=== PATIENT | male | born 1935 | race Caucasian/White ===

== ENCOUNTER 2018-12-02 14:47 | Inpatient (IN) | payer OTHER ==
[~2018-12-02] VITALS: Ht 177.8 cm; Wt 75.3 kg
[2018-12-02] VITALS (11 sets, daily range): BP systolic 124–189; BP diastolic 60–92
[2018-12-02 15:18] LABS: URINE BILIRUBIN NEGATIVE (Negative); URINE BLOOD NEGATIVE (Negative); URINE CLARITY CLEAR; URINE COLOR YELLOW; URINE GLUCOSE-RANDOM* NEGATIVE (Negative); URINE KETONES NEGATIVE (Negative); URINE LEUKOCYTES-REFLEX NEGATIVE (Negative); URINE NITRITE-REFLEX NEGATIVE (Negative); URINE PROTEIN (DIPSTICK) NEGATIVE (Negative); URINE SPECIFIC GRAVITY 1.015 (1.005-1.035); URINE UROBILINOGEN 0.2 E.U./dl (0.2-1.0)
[2018-12-02 15:52] LABS: ABSOLUTE NEUTROPHILS 8.5 thou/uL (1.4-8.2); BASOPHILS 0.6 % (0.0-2.0); EOSINOPHILS 1.3 % (0.0-3.0); HEMATOCRIT 41.5 % (42.0-52.0); HEMOGLOBIN 13.9 gm/dL (14.0-18.0); LYMPHOCYTES 8.6 % (24.0-44.0); MCHC 33.4 g/dL (28.0-37.0); MCV 95.7 fL (80.0-100.0); MONOCYTES 8.8 % (1.0-8.0); PLATELET COUNT 295 thou/uL (150-400); POLYS 80.7 % (36.0-66.0); RBC 4.34 mil/uL (4.50-6.00); RDW 13.1 % (10.5-14.5); WBC 10.5 thou/uL (4.0-11.0)
[2018-12-02 15:57] LABS: ANION GAP 10 mmol/L (7-16); BUN 45 mg/dL (7-18); CALCIUM 9.7 mg/dL (8.5-10.1); CHLORIDE 106 mmol/L (98-107); CO2 25 mmol/L (21-32); CREATININE 1.4 mg/dL (0.7-1.3); GLUCOSE 106 mg/dL (74-106); POTASSIUM 4.8 mmol/L (3.5-5.1); SODIUM 141 mmol/L (136-145)
[2018-12-02 16:07] LABS: ALBUMIN 3.6 g/dL (3.4-5.0); MAGNESIUM 2.3 mg/dL (1.8-2.4); SGOT 46 U/L (15-37); SGPT 72 U/L (30-65); TOTAL BILIRUBIN 0.4 mg/dL (<0.1-1.0); TOTAL PROTEIN 7.7 g/dL (6.4-8.2); TROPONIN-I <0.06 ng/mL (<0.06)
[2018-12-03] VITALS (20 sets, daily range): BP systolic 112–153; BP diastolic 51–72
--- NOTE | 2018-12-03 07:08 | NUR ---
Pt admitted from ED, with at dtr in attendance. Some history was obtained from spouse, including difficulty placing catheter, and suggested a condom catheter instead, which is working well, pt is aware when he needs to void. Cardene started for HTN, currently at 2 mg/hr, see vitals for values. Per report, pt is ataxic, has right hip bruising and discomfort.
--- NOTE | 2018-12-03 15:10 | EKG ---
[address] [place] [address] ELECTROCARDIOGRAM REPORT Name: ARISTEO BROWNE Room #: 243-P ADM IN M.R.#: [id number] Admission: 12/02/18 Attend Phys: Nicole Cash MD Discharge: Date of : 34 Report #: [id number] THIS REPORT FOR: //name// [facility] ED Test Date: 2018-12-02 Test Time: 15:16:25 Pat Name: ARISTEO BROWNE Department: Room: [facility] Gender: [employer] Teacher: RACIEL : 1935 Requested By: Laron Rodriguez Order Number: [id number] MD: Kb Saini Measurements Intervals [place] Rate: 89 P: 269 OH: 226 QRS: -47 QRSD: 94 T: 55 QT: 350 QTc: 426 Interpretive Statements Sinus or ectopic atrial rhythm Prolonged OH interval Left anterior fascicular block No previous ECG available for comparison Electronically Signed On 12-03-2018 15:10:45 CDT by Kb Saini [email or web address] <ELECTRONICALLY SIGNED> By: Kb Saini MD 12/03/18 1510 15 15 Kb Saini MD /JOHANN
--- NOTE | 2018-12-03 17:22 | NUR ---
Case opened to follow for support and dc planning. 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 Oncology has visited with the pt, and dtr this am. is considering options. She reports that she is a retired RN and she has been caring for him at home. She is normally able to get him in and out of the house for appts and he uses a rwalker. She can avoid the 12 steps in the front by going in the back entrance. She ask for their dtr Jesika to be added as an alternate contact and indicates that she is listed on his dpoa as well. She denies any recent home health but is familiar from several years ago after a hip surgery. She feels she can take care of him at home but may be open to discussing hh referral. She is hoping they can do some treatment for this new dx. Support provided. Will ask for therapy evals and reassess for dc planning needs. Prognosis guarded. will follow.
--- NOTE | 2018-12-03 18:37 | NUR ---
ASSESSMENTS AND INTERVENTIONS DOCCUMENTED. PATIENT RESTING QUIETLY AT SHIFT CHANGE. Q2 HOUR NEURO ASSESSMENTS INTIATED. AT BEDSIDE ASKING ABOUT DIET. SPEECH THERAPY CONSULTED PER DR. PUCKETT. PATIENT ORDERED A REGULAR DIET. PATIENT WORKING WITH OT. PATIENT TOLDERATED IT WELL. PATIENT TRANSFERED TO CT FOR SCAN. PATIENT TOLERATED TRANSFER WELL. PATIENT BROUGHT BACK TO ROOM AND WORKED WITH PT. PATIENT WAS ABLE TO STAND BUT WAS UNSTEADY.FAMILY AT BEDSIDE. FAMILY EDUCATED AND REEDUCATED ABOUT PATIENTS PLAN OF CARE. FAMILY ASKING TO SPEAK WITH DR. DR DALLAS WAS UNABLE TO BE REACHED AND DR. PUCKETT WAS PAGED. DR. PUCKETT ROUNDED ON PATIENT AND EDUCATED FAMILY. FAMILY EXPRESSING UNDERSTANDING.DURING THE 1600 HOUR, PATIENT SHOWING INCREASED SIGNS OF CONFUSION. DR PUCKETT PAGED AND ORDER FOR ZYPREXA RECIEVED. PATIENT RESTING IN BED AT THIS TIME. THE PLAN OF CARE IS TO CONTINUE TO MONITOR PATIENT NEURO STATUS AND PLAN OF CARE
[2018-12-04] VITALS (23 sets, daily range): BP systolic 104–164; BP diastolic 46–77
--- NOTE | 2018-12-04 05:49 | NUR ---
Pt has rested for short periods of time through the night. The condom cath was changed again, it only lasted a few hours, and is currently off. The urinal is at the bedside, and he received pericare/linen chnages as needed. He remains somewhat confused, is quite pleasant and tries to follow commands, but he does have some word- searching, so receptive and expressive dysphagia is noted. Monitor reads SR/SA, with a prolonged [place], and R-R varies, his BP has been stable, cardene has been titrated down to 1.5 mg/hr. Lungs are diminished, O2 at 2 L, no cough, he tries to remove sat probe frequently. The bed is in the low/locked position, the call light is within reach and the siderails are up x 4. Will continue to monitor and advance with care plans.
--- NOTE | 2018-12-04 07:58 | HC ---
[facility] [place] [address] CONSULTATION Name: ARISTEO BROWNE Room #: 243-P ADM IN M.R.#: [id number] Admission: 12/02/18 Attend Phys: Nicole Cash MD Discharge: Date of : 34 Report #: [id number] THIS REPORT FOR: //name// CC: Ruben Mancilla MD [facility] physician/PCP TARUN Cash HISTORY OF PRESENT ILLNESS: The patient is a very pleasant 83-year-old gentleman who reportedly has a recent history of mental status change. He is examined in the ICU-243. Note that the CAT scan yesterday raised a question about a left cerebral mass. An MRI confirms and suggests malignancy, possibly GBM. The patient seems to be aware that he is having some trouble thinking. He talks about perhaps some numbness on his right face. He also seems to think his right-side arm maybe week, but it is difficult to tell. He denies any headache or pain. He does not think that he has any swallowing trouble or breathing trouble. He denies dysphagia or aspiration, but he may have had some cough, he says with drinking. He is not aware of any significant weight change, bowel changes, or urinary changes recently. He has been very weak recently and maybe had polyuria. PAST MEDICAL HISTORY: Notable for the prostate cancer. Family is not available to see if there is ____. It sounds like he has been on Lupron for a number of years with Dr. Ruben Mancilla, may be had an increased dose or decreased dose and frequency recently, but will get records from Dr. Mancilla. He reports being on no medicines. We will need to clarify that. SOCIAL HISTORY: It sounds like he is retired, sounds like he used to work for the [employer]. FAMILY HISTORY: It sounds like he has a daughter who tells me is healthy, has a at home, was not able to reach her. PHYSICAL EXAMINATION: GENERAL: The patient appears his stated age. He is in ICU bed, a little bit difficulty answering questions. He is pleasant, little bit trouble finding his words. Face appears to be mostly symmetrical. VITAL SIGNS: Height is 5 feet 10 inches, 177.8 cm. Weight is 163 pounds or 74.2 kilograms. Blood pressure 137/67, O2 sat 95%, pulse 90, respirations 60, temperature 97.8. 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 It is hard to tell he may have some slight numbness on his right face, but it is hard to tell as far as how reliable historian he is. ABDOMEN: Soft, without masses. LUNGS: Clear worley with good respirations. HEART: Appears regular rate. EXTREMITIES: Without clubbing or cyanosis. I can tell, he seems to be [facility] [address] [place] [address] CONSULTATION Name: ARISTEO BROWNE Room #: 243-P ADM IN M.R.#: [id number] Admission: 12/02/18 Attend Phys: Nicole Cash MD Discharge: Date of : 34 Report #: [id number] generalized weak without weakness without focal LABORATORY DATA: Shows a creatinine of 1.4, albumin of 3.6, but that was before fluids. ALT was 72. White count 10.5, hemoglobin 13.9, and platelets 295. Coags normal. As mentioned above on imaging, we had a chest x-ray without acute process. The CT head raised the question about the left cerebral hemispheric extensive white matter with apparent mass with central low density. 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 MEDICATIONS: As described by the chart, currently include dexamethasone 8 mg q. 8 h IV. He is on IV fluids. He is also not nicardipine drip, Zofran p.r.n., and morphine p.r.n. ASSESSMENT AND PLAN: 1. 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 Agree with concerns about cancer. We will check CT chest, abdomen and pelvis to make sure this is in a lung cancer metastatic to the brain, which might change our treatment plan. We will await neurosurgery's input. We have some difficult decisions to make whether we radiate this or resect it or go palliative care route. I am afraid this is a very limited prognosis almost no matter what we find. We will await others input. I did talk briefly with the daughter to try to make them aware of the seriousness of his current health issues. 2. Mentation change. No definite aspiration but we will ask Speech Path to see the patient. 3. History of prostate cancer with reported higher PSA. We will try to get records from Dr. Mancilla. We will follow with you. <ELECTRONICALLY SIGNED> By: Nasim Celestin MD 12/04/18 0758 11 Nasim Celestin MD /nt
[2018-12-04 11:02] LABS: HEMOGLOBIN 12.9 gm/dL (14.0-18.0); MCH 31.8 pg (26.0-34.0); MCV 96.3 fL (80.0-100.0); RBC 4.05 mil/uL (4.50-6.00); RDW 13.1 % (10.5-14.5); WBC 15.4 thou/uL (4.0-11.0)
[2018-12-04 11:16] LABS: ALBUMIN 2.8 g/dL (3.4-5.0); CALCIUM 9.2 mg/dL (8.5-10.1); POTASSIUM 4.2 mmol/L (3.5-5.1); TOTAL BILIRUBIN 0.1 mg/dL (<0.1-1.0); TOTAL PROTEIN 6.3 g/dL (6.4-8.2)
--- NOTE | 2018-12-04 19:21 | NUR ---
PATIENT ALERT AND ORIENTED TO SELF ONLY. SINUS RHYTHM ON WASHCOAT WIPER. ON ROOM AIR, TOLERATING REGULAR DIET WELL. UP TO THE CHAIR WITH X2 ASSISTANCE, GAIT BELT, AND WALKER. PATIENT STAYED IN CHAIR FOR 4 HOURS. NO COMPLAINTS OF PAIN. PLAN OF CARE DISCUSSED WITH PATIENT AND FAMILY. NO SIGNS OF ACUTE DISTRESS NOTED AT THIS TIME. WILL CONTINUE TO MONITOR.
[2018-12-05] VITALS (24 sets, daily range): BP systolic 119–163; BP diastolic 54–116
--- NOTE | 2018-12-05 00:44 | NUR ---
CARE PLANE UPDATED AND UPDATED TARGET DATES.
--- NOTE | 2018-12-05 16:57 | NUR ---
PATIENT ALERT AND ORIENTED TO SELF ONLY, INTERMITTENTLY DROWSY THROUGHOUT THE DAY DUE TO LACK OF SLEEP OVER NIGHT, NEW SLEEPING MEDICATION ORDERED. PATIENT ON 2L NASAL CANNULA. SINUS RHYTHM ON INSPECTOR SHEET METAL PARTS. NO COMPLAINTS OF PAIN. SPOKE WITH MEDICAL TEAM INCLUDING RYLEE PUCKETT, AND ENE ABOUT FUTURE PLANNING: LUNG BIOPSY AND POSSIBLE RADIATION TREATMENT. DAUGHTER AND AWARE AND VERBALIZED UNDERSTANDING. PLAN DISCUSSED WITH PATIENT ALSO. KOCH INSERTED PER MD ORDER, PATIENT TOLERATED WELL WITH NO ISSUES. NO SIGNS OF ACUTE DISTRESS NOTED AT THIS TIME. WILL CONTINUE TO MONITOR.
--- NOTE | 2018-12-05 18:26 | NUR ---
SPOKE WITH DR. LUQUE ABOUT POSSIBLE RADIATION TREATMENT ONCE DISCHARGED. DR. LUQUE WOULD LIKE TO SPEAK WITH CASE MANAGEMENT, CONSULT ENTERED. HE CAN BE REACHED AT .
[2018-12-06] VITALS (24 sets, daily range): BP systolic 122–179; BP diastolic 59–91
--- NOTE | 2018-12-06 06:00 | NUR ---
A VERY PLEASANT GENTLEMAN. SLEPT MOST OF NIGHT. PETERS PUPILS 1+ 1600 CC UO THIS SHIFT. SINUS RHYTHM. REMAINS NPO FOR LUNG BIOPSY. DR DALLAS SPOKE WITH PTS THIS AM. LUNGS DIMINISHED BILAT. BATHED. WILLL CONT TO MONITOR.
--- NOTE | 2018-12-06 14:21 | NUR ---
Spoke with and dtr regarding dc planning. they reports patient with plan for radiation tx at [facility]. They are interested in post acute are at facility that can provide transportation to/from tx. [facility] and [facility] provide [facility] to/from apts. [facility] is full as well. Call placed to [facility] whose transport van is broken. Call placed to [facility] to call.
--- NOTE | 2018-12-06 14:35 | NUR ---
PATIENT SEEN BY DR. LAWSON THIS DATE. PATIENT WILL BE RECEIVING RADIATION AND IS NOT APPROPRIATE FOR ACUTE REHAB. PLAN FOR PATIENT TO GO TO A GROUP HOME FACILITY. CONFIRMED CASE MANAGEMENT WAS AWARE OF PATIENT'S WISHES. THANK YOU FOR THIS REFERRAL.
--- NOTE | 2018-12-06 16:16 | NUR ---
FAXED REFERRAL TO [facility] SPOKE WITH ONEAL IN ADM SHE RECEIVED REFERRAL AND WILL REVIEW. DCP TO FOLLOW.
[2018-12-07] VITALS (21 sets, daily range): BP systolic 99–188; BP diastolic 52–95
[2018-12-07 11:11] LABS: ALBUMIN 2.9 g/dL (3.4-5.0); CALCIUM 8.7 mg/dL (8.5-10.1); CREATININE 0.8 mg/dL (0.7-1.3); MAGNESIUM 1.8 mg/dL (1.8-2.4); TOTAL BILIRUBIN 0.3 mg/dL (<0.1-1.0); TOTAL PROTEIN 6.2 g/dL (6.4-8.2)
[2018-12-07 11:12] LABS: POTASSIUM 4.8 mmol/L (3.5-5.1)
[2018-12-07 11:44] LABS: HEMATOCRIT 44.1 % (42.0-52.0); HEMOGLOBIN 14.4 gm/dL (14.0-18.0); MCH 31.3 pg (26.0-34.0); MCHC 32.7 g/dL (28.0-37.0); MCV 95.8 fL (80.0-100.0); PLATELET COUNT 301 thou/uL (150-400); RDW 13.5 % (10.5-14.5); WBC 15.7 thou/uL (4.0-11.0)
[2018-12-07 12:05] LABS: ABSOLUTE NEUTROPHILS 14.1 thou/uL (1.4-8.2); PLATELET ESTIMATE NORMAL
--- NOTE | 2018-12-07 17:10 | NUR ---
Patient progressing towards outcome goals as evident by. Up in the chair most of the day. Ambulated with PT around the desk in the hallway. Tylenol given for rt hip pain with relief. Family states that he is more like himself today. Reassurance given to patient and family
--- NOTE | 2018-12-07 17:16 | NUR ---
SPOKE WITH SHE IS INTERESTED IN . REFERAL FAXED THEY ARE REVIEWING AND INQUIRING INTO TRANSPORT. UPDATED . IF CAN ASSIST WITH TRANSPORT SHE WANTS TO TOUR,.
--- NOTE | 2018-12-07 19:39 | NUR ---
PATIENT SITTING UP MOST OF THE DAY WITH FAMILY AT BEDSIDE. PATIENT STATUS IMPROVED AND MOVED TO MED SURG TELE STATUS. VSS.
[2018-12-08] VITALS: BP 124/71
[2018-12-08 04:01] VITALS: BP 119/71
[2018-12-08 04:33] LABS: HEMATOCRIT 42.3 % (42.0-52.0); HEMOGLOBIN 13.9 gm/dL (14.0-18.0); MCH 31.5 pg (26.0-34.0); MCHC 32.9 g/dL (28.0-37.0); MCV 95.9 fL (80.0-100.0); PLATELET COUNT 274 thou/uL (150-400); RBC 4.41 mil/uL (4.50-6.00); WBC 14.7 thou/uL (4.0-11.0)
[2018-12-08 04:43] LABS: CALCIUM 8.9 mg/dL (8.5-10.1); CREATININE 1.1 mg/dL (0.7-1.3); PHOSPHORUS 3.5 mg/dL (2.5-4.9); POTASSIUM 4.7 mmol/L (3.5-5.1)
[2018-12-08 05:25] LABS: ABSOLUTE NEUTROPHILS 13.1 thou/uL (1.4-8.2)
[2018-12-08 05:26] LABS: PLATELET ESTIMATE NORMAL
--- NOTE | 2018-12-08 05:26 | NUR ---
PT AOX3 DURING THE NIGHT. SLEEPING DURING ROUNDS. DENIED PAIN. VSS. AFEBRILE. GREAT URINE OUTPUT. NO COMPLAINS CURRENTLY WILL CONTINUE TO MONITOR.
[2018-12-08 08:00] VITALS: BP 107/74
--- NOTE | 2018-12-08 11:20 | NUR ---
Nutrition: pt admitted with brain lesion, AMS, fell at home. Seen for LOS. Hx prostate CA. S/P lung biopsy for left lower lung mass. Needs whole brain radiation per physician. Plan placement. reports UBW 180# over a year ago, 7%, not significant in time frame. She attributes this to a medication he has been on for prostate CA. Appetite reported as excellent. 50-100% of meals is documented. reports they follow organic type diet for past 20 years and eat very healthy. She is ordering meals. Obtained food preferences. No complaints voiced. Low nutrition risk.
[2018-12-08 12:00] VITALS: BP 119/52
--- NOTE | 2018-12-08 13:50 | NUR ---
PATIENT PROGRESSING TOWARDS OUTCOME GOALS EVIDENT BY INCREASE IN STRENGTH AND STAMINA NOTED. ALERT AND ABLE TO SAY HE IS IN THE HOSPITAL, BUT DOES NOT KNOW THE NAME OF THE HOSPITAL. PAIN IN RIGHT HIP RELEIVED WITH TYLENOL. PATIENT AND UPDATED WITH POC AND REASSURANCE GIVEN.
--- NOTE | 2018-12-08 16:10 | NUR ---
PATIENT TRANSFERRED TO 3W ROOM 363 VIA W/C WITH BELONGINGS, ACCOMPANIED BY HIS . EDUCATED TO HOW TO GET TO HER 'S ROOM. REPORT AND HANDOFF TO EREN GRIMALDO.
--- NOTE | 2018-12-08 16:16 | NUR ---
FAXED REFERRAL TO [facility] SPOKE WITH DEBRA IN INTAKE SHE RECEIVED REFERRAL AND CAN ACCEPT PT AT DISCHARGE. NEED TO NOTIFY [facility] OF PT'S PCP TO FOLLOW PT AFTER DC. DP TO FOLLOW.
[2018-12-08 16:43] VITALS: BP 136/69
--- NOTE | 2018-12-08 17:29 | NUR ---
INITIALLY PLANNING SKILLED POST ACUTE CARE BUT PREFERS HOME WITH HH CARE. REFERALL TO [facility]ARE. NO PREFERENCE FOR HH. [facility] HAS HH, PALLATIVE AND HOSPICE IF NEEDED IN FUTURE CARE. PATIENT HAS NO PCP. ONCOLOGY CANNOT FOLLOW FOR HH CARE. GAVE INFO ON [facility]SC.
--- NOTE | 2018-12-08 18:18 | NUR ---
ASSUMED CARE OF PATIENT WHEN TRANSFERED FROM ICU AROUND 1600. PATIENT HAD STABLE VITALS ON ARRIVAL WITH NORMAL SINUS RHYTHM ON TELEMETRY. AWAITING HALINAT'S BIOSPY RESULTS.
[2018-12-08 19:23] VITALS: BP 161/77
[2018-12-09 03:50] VITALS: BP 144/74
--- NOTE | 2018-12-09 05:31 | NUR ---
PT MAKING SLOW PROGRESS TOWARDS GOALS. ORIENTED TO NAME, PLACE, SITUATION AND TIME OF DAY. POORLY ORIENTED TO DATE. PLEASANT AFFECT.
[2018-12-09 08:40] VITALS: BP 175/86
--- NOTE | 2018-12-09 11:04 | HC ---
[facility] [place] [address] CONSULTATION Name: ARISTEO BROWNE Room #: 363-P ADM IN M.R.#: [id number] Admission: 12/02/18 Attend Phys: Nicole Cash MD Discharge: Date of : 34 Report #: [id number] THIS REPORT FOR: //name// CC: [facility] physician/PCP Nicole Cash DATE OF SERVICE: 12/06/2018 HISTORY OF PRESENT ILLNESS: The patient is an 83-year-old white male admitted with mental status changes, problems with word finding. notes approximately 3 months ago, he had a muscle strain, when he saw a chiropractor. He nevertheless has been pretty active and the daughter notes he was mowing in the lawn a couple of weeks ago. He has had worsening function; however, since that time, needing more and more assistance utilizing the walker and it has been more and more difficult for the to assist him. Upon admission, CT of the brain showed a large left parietal occipital mass with left to right shift. He is noted to have acute renal insufficiency. Chest CT showed left lower lobe mass. He has been seen by Radiation Oncology, thought to most likely a metastatic lung CA involving the brain. He is to undergo a biopsy of the lung mass this morning. Plan is to offer palliative radiation if the pathology is positive also Oncology is following. The patient has been started on Decadron with some improvement neurologically. We are seeing him in rehabilitation medicine consultation. PAST MEDICAL HISTORY: Prostate CA. MEDICATIONS: Please see the full medication listing. HABITS: No history of tobacco or alcohol abuse. SOCIAL HISTORY: Lives in a house with , did not need to utilize steps and most recently, he was able to use a walker as far as the assisting him on to appointments. REVIEW OF SYSTEMS: He is hard of hearing. No current complaints of chest pain, shortness of breath or abdominal discomfort. PHYSICAL EXAMINATION: GENERAL: An 83-year-old white male in no obvious distress. VITAL SIGNS: Last recorded temperature 98.5, pulse 64, respirations 13, and blood pressure 144/69. He is alert. HEAD, EYES, EARS, NOSE, AND THROAT: Appeared to be benign. NEUROLOGIC: Cranial nerves grossly intact. Facies are symmetric. EXTREMITIES: Functional range of motion of both upper and lower extremity strength is probably a grade 4/5. He was max assist with sit to stand transfers and is improved to mod assist. He took 2 steps mod assist front-wheeled walker, [facility] [address] [place] [address] CONSULTATION Name: ARISTEO BROWNE Room #: 363-P [facility] IN .R.#: [id number] Admission: 12/02/18 Attend Phys: Nicole Cash MD Discharge: Date of : 34 Report #: [id number] has some right lower extremity ataxia. ASSESSMENT: An 83-year-old white male with the following problem list: 1. Large left parietal occipital mass with left to right shift with some improvement with steroids. 2. Left lower lobe mass, most likely metastatic lung CA, involving brain per Radiation Oncology. 3. Prior history of prostate cancer. 4. Acute kidney injury, improving. Plan is moving a little better on the steroids. He is to undergo biopsy of the pulmonary mass this morning. PLAN: Therapies are to continue to work with him during this time period. The family has met with the social and political studies professor and they are looking at options including [facility], stay consideration such as at [facility] which is close to at least some at the site for Radiation Oncology. In the meantime, we will be glad to follow along and have the therapist continue to work with him during his [facility] stay. <ELECTRONICALLY SIGNED> By: Ruben Peñaloza MD 12/09/18 1104 1115 1310 Ruben Peñaloza MD /PMT
[2018-12-09] MEDS ORDERED: HYDROCODON-ACE1 EAC7 PO (12:31)
[2018-12-09] MEDS ORDERED: PEPCID20 MG PO (12:31)
[2018-12-09] MEDS ORDERED: NIFEDIPINE10 MG PO (12:31)
[2018-12-09] MEDS ORDERED: HYDROCHLOROTHIA25 M1 PO (12:31)
[2018-12-09] MEDS ORDERED: FLOMAX0.4 MG PO (12:31)
--- NOTE | 2018-12-09 13:21 | NUR ---
DISCHARGE SUMMARY: SW reviewed chart and spoke with nursing and attending physician. Pt was transferred to 3 from ICU and is medically stable for discharge home today. Orders written for HH. [facility] has accepted pt. Pt has radiation oncology appt scheduled for tomorrow, 12/[address] King. SW met with pt and at bedside to discuss discharge plan. SW provided appt info to pt's . Pt's to contact Yesica at Dr. King's office for additional info. Pt and spouse interested in establishing primary care with Dr. Veras. MEGAN scheduled appt with Dr. Veras's BUSINESS MGR, Peter Aquino for Thursday, 12/14 at 0915. Contact info for both appts placed in pt's discharge summary. Pt's declines HH at this time, stating that they will call for HH if they feel pt needs it. SW explained that a PCP will need to follow for HH. Pt's verbalized understanding. Pt's to provide transportation home. No additional SW needs identified at this time, but is available to assist should needs arise.
[2018-12-09 13:54] VITALS: BP 175/86
[2018-12-09 14:02] VITALS: BP 175/86
[2018-12-09 14:30] VITALS: BP 175/86
--- NOTE | 2018-12-09 15:43 | NUR ---
Reviewed discharge instructions with patient and his . Awaiting call back from Dr Carpenter regarding scripts for meds pt to take at home. Outpatient pharmacy attempting to contact Dr Carpenter. Pt's anxious to leave the hospital.
--- NOTE | 2018-12-09 15:48 | NUR ---
Pt has been up to the bathroom a few times. Encouraged to walk in [place] but has not wanted to walk. Pt reporting nausea and continued pain. Surgeon was contacted and order for Toradol received.
--- NOTE | 2018-12-09 16:00 | NUR ---
Discharged home. Assisted to outpatient pharmacy to cone picker medications by heating unit installer and then to car. driving patient home.
--- NOTE | 2018-12-20 13:08 | PATH ---
[facility] [address] [place] [address] PATHOLOGY RPT PROCEDURE Name: ARISTEO JEFFERSON Room #: 363-P DIS IN M.R.#: [id number] Admission: 12/02/18 Date of : 33 Discharge: 12/09/18 Report #: [id number] Path Case #: [id number] LCA Accession Number: [id number] . 01 Material submitted: . lung - LEFT LUNG BIOPSY. Modifiers: left . 01 Clinical history: . None provided . 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 . (IUV:dorian; 12/08/2018) QMS 12/08/2018 1443 Local . 02 Comment: Examination shows a poorly differentiated epithelial neoplasm within a fibrotic and elastotic stroma. A properly controlled p63 and TTF-1 are performed on block A1. The tumor shows strong nuclear reactivity with TTF-1 supporting the diagnosis rendered, the tumor is nonreactive to p63. . Dr. Myesha Thrasher has seen the bank representative H and E slide for this case and concurs with the diagnosis. Findings of this case are communicated to Dr. Bruno Celestin in the morning of 12/08/2018. (IUV:dorian; 12/08/2018) . 02 Addendum: . Special studies report received from [facility], [address] [place] [address], [address], [place], [address], on case [id number], labeled with their number [id number], dated 12/15/2018. . PD-L1 Immunohistochemistry Analysis . Body Site: Lung, left lower lobe (biopsy). Specimen Received: 1 paraffin block labeled "[id number]". . Clinical History Invasive moderate to poorly-differentiated adenocarcinoma, compatible with lung origin. . Results Table PD-L1 - PAU (R) Tumor Proportion Interpretation [id number] 80% High Expression . [address] [address] PATHOLOGY RPT PROCEDURE Name: ARISTEO JEFFERSON Room #: 363-P DIS IN M.R.#: [id number] Admission: 12/02/18 Date of : 34 Discharge: 12/09/18 Report #: [id number] Path Case #: [id number] . Reference Ranges PD-L1 protein expression is determined by using the Tumor Proportion Score (TPS), which is the percentage of at least 100 viable tumor cells showing complete or partial membrane staining at any intensity. . TPS less than 1%: No Expression . TPS greater than or equal to 1%: Expression - Eligible for KEYTRUDA (pembrolizumab) monotherapy. . TPS greater than or equal to 50%: High Expression - Eligible for KEYTRUDA (pembrolizumab) monotherapy. . Note: PD-L1 expression level TPS greater than or equal to 50% may be of interest but does not determine eligibility for KEYTRUDA monotherapy. . . at [employer]. Silvino Guerin M.D. . Tests PD-L1 IHC Analysis . Intended Use: PD-L1, 22C3 pharmDx is FDA approved for in vitro diagnostic use as a qualitative immunohistochemical assay using Monoclonal Mouse Anti-PD-L1, Clone 22-C3 intended for use in the detection of PD-L1 in formalin-fixed paraffin-embedded (FFPE) non-small cell lung cancer (NSCLC) using the [employer] EnVision FLEX visualization system on [employer] Link 48. PD-L1 22C3 pharmDx is indicated as an aid in identifying NSCLC patients for treatment with KEYTRUDA (pembrolizumab) monotherapy. See the KEYTRUDA product label for specific clinical circumstances guiding PD-L1 testing. PD-L1, 22C3 pharmDx is a trademark of [employer], an ANPI. . References: Marty TS, Segura Y-L, Tamy I, et al: Pembrolizumab versus chemotherapy for previously untreated, MF-K0-cdprwslmgn, locally advanced or metastatic mrq-bwyjt-vmbt lung cancer (KEYNOTE-042): a randomised, open-label, controlled, phase 3 trial. Lancet 2018June 10; Online(12) 1-12. . Rigo RS, Praveena P, Dior D-W, et al: Pembrolizumab versus docetaxel for previously treated, VS-H0-ohbgcnfl, advanced ugk-mmbbn-eimn lung cancer (KEYNOTE-010): a randomized controlled trial. Lancet 2015 Feb 24; Online(75) 2360-0. . Rl EB, Se NA, Sade R, et al: Pembrolizumab for the Treatment of [facility] [address] [place] [address] PATHOLOGY RPT PROCEDURE Name: ARISTEO JEFFERSON Room #: 363-P DIS IN M.R.#: [id number] Admission: 12/02/18 Date of : 34 Discharge: 12/09/18 Report #: [id number] Path Case #: [id number] Spn-Dpyfq-Iirn Lung Cancer. N Engl J Med 2015 July 27; 372:9264-2044. . Please contact [facility] for additional references. . Disclaimer This Test was performed by [facility] at [address] [place] [address], [facility]. [facility] is a business unit of [employer] a wholly-owned subsidiary of [employer]. . . Any image(s) that accompany this report is/are a bank representative image(s) only and should not be used to render a diagnosis. . This interpretation is contingent on the specimen and the clinical information received. . Known positive cells or tissues are employed with each test and examined to ensure positivity. Positive and negative internal controls, if present, react appropriately. . This analysis is an adjunct to the evaluation of the referring physician and does not represent a final diagnosis. . The immunohistochemistry tests performed at [employer]. were validated on tissue fixed in 10% neutral buffered formalin. The performance characteristics of the tests performed on tissue processed in other fixatives is not known. . This assay has not been validated on decalcified tissues. Results should be interpreted with caution if this specimen was decalcified given the likelihood of decreased staining or false negativity on decalcified specimens. . A complete copy of the report is on file. . Professional services performed by [employer] at [address] [facility] [address], [place] [address]. Technical services performed by [employer] at [facility] [address] [place] [address], [place] [address]. . (IUV:amj 12/15/2018) . . AZJ/12/15/2018 Addendum Electronically Signed by Kimberlee Franklin MD, Pathologist Addendum #2: [place] [address] PATHOLOGY RPT PROCEDURE Name: ARISTEO JEFFERSON Room #: 363-P DIS IN M.R.#: [id number] Admission: 12/02/18 Date of : 34 Discharge: 12/09/18 Report #: [id number] Path Case #: [id number] Special studies report received from [facility], [address] [place] [address], [place] [address], [place], [address], on case [id number], labeled with their number [id number], dated 12/16/2018. . EGFR Gene Mutation Analysis . INTERPRETATION: Negative for EGFR Mutation. . Indication for Study: Adenocarcinoma . Specimen Site and Type: Paraffin-Embedded Tissue-Lung, LLL . Nucleotide Change: . Amino Acid Change: . Comments: No mutations were detected within the analyzed region of the EGFR gene in the sample provided for analysis. Less than 5% of non-small cell lung carcinoma patients without identifiable mutations are reported to be responsive to EGFR tyrosine kinase inhibitor therapies. Results should be interpreted in conjunction with clinical and other laboratory findings for the most accurate interpretation. . A subgroup of non-small cell lung cancer (NSCLC) patients has shown clinical responsiveness to the epidermal growth factor receptor (EGFR) inhibitors gefitinib (IRESSA) and erlotinib (Tarceva), including never smokers, individuals of ethnicity, and those with adenocarcinoma histology. In the majority of patients with highly responsive tumors, the tumor contains a somatic mutation within the EGFR tyrosine kinase domain. The presence of a somatic EGFR mutation is significantly associated with response to gefitinib and erlotinib, and is strongly predictive of prolonged survival in NSCLC patients. . T790M mutation had been tested but was not detected in this submitted specimen. . This assay is able to detect 5% mutation in a background of wild-type DNA. . . See report [id number] for further information. See FISH report [id number] for further information. See report [id number] for further information. See report [id number] for further information. . . at [facility] [employer] [address] PATHOLOGY RPT PROCEDURE Name: ARISTEO JEFFERSON Room #: 363-P DIS IN M.R.#: [id number] Admission: 12/02/18 Date of : 34 Discharge: 12/09/18 Report #: [id number] Path Case #: [id number] Richard Chakraborty, Ph.D., ROSENDA DABMG, DABCC, DLMcm, M(ASCP)cm, MB(ASCP)cm . . Methodology: Genomic DNA was isolated from the provided tumor specimen. Exons 18 through 21 of the EGFR gene were subjected to SNaPShot multiplex PCR and primer extension for mutation detection. . Table: This Assay Can Detect the Following Mutations EGFR EGFR Codon Mutation Approximate % of all EGFR Exon Mutations 18 E709 E709K,E709Q 1% G719 G719S,G719C,G719A,G719D 2-5% 19 Insertions 18bp ins 1% Deletions 9,12,15,18,24 bp del 45% 20 Insertions 3,6,8,12 bp ins 5-10% S768 S768I 1-2% R776 R776C <1% T790 T790M 2% 21 L858 L858R 40% A859 A859T <1% L861 L861Q,L861R 2-5% * This Assay does not distinguish between the 18bp insertion and deletions at nucleotide position 2235 and 2237 . References: 1. Tye PA, Franchesca JA, Tobi BE. Epidermal Growth Factor Receptor Mutations in Ilj-Trwvu-Ebxe Lung Cancer: Implications for Treatment and Tumor Biology. J. Clin. Oncol. 2005; 23:8468-4276. 2. Celia TAM et al. A Platform for Rapid Detection of Multiple Oncogenic Mutations with Relevance to Targeted Therapy in Vvb-Obxcu-Fpnp Lung Cancer. J. Mol. Diagn. 2011;13(1):74-84. . Disclaimer This Test was performed by [facility] [employer] at [facility], [address]. [facility] is a business unit of [employer] a wholly-owned subsidiary of [employer]. . . Any image(s) that accompany this report is/are a bank representative image(s) only and should not be used to render a diagnosis. . This test was developed and its performance characteristics determined by [facility] It has not been cleared or approved by the Food and Drug Administration. [address] [address] PATHOLOGY RPT PROCEDURE Name: ARISTEO JEFFERSON Room #: 363-P DIS IN M.R.#: [id number] Admission: 12/02/18 Date of : 34 Discharge: 12/09/18 Report #: [id number] Path Case #: [id number] . A complete copy of the report is on file. . Professional services performed by [employer] at [address] [place] [address]. Technical services performed by [employer] at [address] [place], [place] [address]. . (IUV:amj 12/16/2018) . . . . . Special studies report received from [facility], [address] [place] [address], on case [id number], labeled with their number [id number], dated 12/16/2018. . BRAF Mutation Detection by PCR-SNAPSHOT Analysis . INTERPRETATION: Negative for a V600 BRAF mutation . Indication for Study: Adenocarcinoma . Specimen Type: Paraffin-Embedded Tissue-Lung, LLL . Comments: Somatic mutations in the BRAF oncogene are frequently found in human cancers, such as melanoma (approximately 40-60%), colorectal (approximately 5-15%), lung (approximately 1-3%), ovary (approximately 35%), thyroid carcinomas (approximately 45%) and hairy cell leukemia (approximately 100% in limited studies). Over 90% of the mutations are the V600E (1799T>A) mutation, but other V600 mutations have been reported. A negative result does not rule out the presence of other non-V600 mutations. Correlation with other clinical findings is needed for the most accurate interpretation. . This test detects multiple V600 mutations in BRAF, including V600E, V600K and other V600 variants. . See report [id number] for further information. See FISH report [id number] for further information. See report [id number] for further information. See Molecular report [id number] for further information. . Analytical Results: Assay Type Detection Parameters Result BRAF Gene Mutation Exon 15 V600 Negative [address] [address] PATHOLOGY RPT PROCEDURE Name: ARISTEO JEFFERSON Room #: 363-P DIS IN M.R.#: [id number] Admission: 12/02/18 Date of : 34 Discharge: 12/09/18 Report #: [id number] Path Case #: [id number] . at [facility] [employer] Richard Chakraborty, Ph.D., ROSENDA DABMG, DABCC, DLMcm, M([facility])cm, TEJ([facility])cm . Methodology: Genomic DNA was isolated from the provided specimen. Exon 15 of the BRAF gene was subjected to PCR and SNaPShot multiplex primer extension for mutation detection. This assay is able to detect 5% mutation in a background of wild-type DNA. . Intended Use: The detection of a BRAF V600 gene mutation aids in the specific diagnosis of certain cancers, such as hairy cell leukemia, and help to identify patients with worse prognosis and who may be responsive to certain therapies in a variety of cancers. . References: Kalie Sinclair al. (2014) Integrating molecular biomarkers into current clinical management in melanoma. Methods Mol. Biol. . . Maldonado Abdalla et al. (2014) Resistance to anti-EGFR therapy in colorectal cancer: from heterogeneity to convergent evolution. Cancer Disco. 4:1-12. . NCCN Clinical Practice Guidelines in OncologyTM for Colon Cancer v.2 2015. . NCCN Clinical Practice Guidelines in OncologyTM for Hairy Cell Leukemia. v.4 2014. . NCCN Clinical Practice Guidelines in OncologyTM for Rectal Cancer v.2 2015. . NCCN Clinical Practice Guidelines in OncologyTM for Thyroid Carcinoma. v.2 2014. . NCCN Clinical Practice Guidelines in OncologyTM for Non-Small Cell Lung Cancer. v.1 2014. . Ruslan K. et al. (2012) Lung cancers with acquired resistance to EGFR inhibitors occasionally harbor BRAF gene mutations but lack mutations in KRAS, NRAS, or MEK1. Proc. Natl. Acad. Sci. USA. 109:Q9338-W0387. . Maldonado Koo et al. (2013) Clinicopathological relevance of BRAF mutations in human cancer. Pathology 45: 346-356. . Mary Ann Farias. and Gerson Santizo. (2010) BRAF mutation testing in colorectal cancer. Arch. Pathol. Lab. Med. [phone]. [address] [address] PATHOLOGY RPT PROCEDURE Name: ARISTEO JEFFERSON Room #: 363-P DIS IN M.R.#: [id number] Admission: 12/02/18 Date of : 34 Discharge: 12/09/18 Report #: [id number] Path Case #: [id number] . Disclaimer This Test was performed by [facility] [employer] at [address] [place] [address], [address], [address]. [facility] is a business unit of [employer] a wholly-owned subsidiary of [employer]. . . This test was developed and its performance characteristics determined by [facility] [employer] It has not been cleared or approved by the Food and Drug Administration. . A complete copy of the report is on file. . Professional services performed by [employer] at [address] [place] [address], [facility] [address], [place] [address]. Technical services performed by [employer] at [address] [place] [address], [place] [address], [place] [address]. . (IUV:amj 12/16/2018) . AZJ/12/16/2018 Addendum Electronically Signed by Kimberlee Franklin MD, Pathologist Addendum #3: Special studies report received from [facility], [address] [place] [address], [facility] [address], [place], [address], on case [id number], labeled with their number [id number], dated 12/17/2018. . Fluorescence in situ Hybridization (FISH) Report ALK Analysis . RESULT: No Evidence of ALK Gene Rearrangement detected by FISH nuc edita(ALKx3 approximately 6)(20/50) . Specimen Type: Tissue, Left Lung . Specimen Fixative Type: Not Provided . Indication for Study: Adenocarcinoma . INTERPRETATION: Fluorescence in situ hybridization (FISH) analysis was performed on paraffin embedded tissue using an ALK Break Apart DNA probe (FDA approved kit, [employer]) for the detection of rearrangements involving the ALK gene. . Fifty interphase nuclei were examined and no evidence of ALK specific gene [facility] [address] [place] [address] PATHOLOGY RPT PROCEDURE Name: ARISTEO JEFFERSON Room #: 363-P DIS IN M.R.#: [id number] Admission: 12/02/18 Date of : 34 Discharge: 12/09/18 Report #: [id number] Path Case #: [id number] rearrangement was detected. 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 . Genetic changes other than those assayed here cannot be ruled out on the basis of this testing. Correlation with clinical and pathological findings is suggested for a complete interpretation of the results. . See FISH report [id number] for further information. See report [id number] for further information. See report [id number] for further information. See Molecular report [id number] for further information. . Electronically Signed by Chicho Traore, PhD, [facility] on 12/17/2018 at [employer] Chicho Traore, PhD, [facility] Cytogenetics Director . Methodology: FISH was performed using ALK Break Apart FISH Probe Kit (FDA approved, [employer] A minimum of fifty invasive tumor cells were examined from areas that were delineated by a Pathologist from a corresponding H/E slide. A classification of each nucleus as positive or negative is recorded according to bolt maker's instruction. The results are calculated as a percentage of the total positive cells to total cell analyzed. The normal cutoff was established as 15% using NSCLC FFPE tissue specimen. A negative result is reported when a sample with <15% rearranged cells and a positive result is defined when a sample shown greater than or equal to 15% cells with ALK gene rearrangements. A result is considered uninformative when there are less than 50 invasive tumor cells for FISH analysis. . Intended Use: The ALK Break Apart FISH Probe procedure is a qualitative test to detect rearrangements involving the ALK gene via fluorescence in situ hybridization (FISH) in FFPE NSCLC tissue specimens to aid in identifying those patients eligible for treatment with XALKOR (crizotinib). It is intended for use only on 10% neutral buffered formalin fixed paraffin-embedded NSCLC tissue. The optimal fixation time for tissue is 6-48 hours. The test is for prescription use only. . Disclaimer [facility] is a business unit of [employer] a wholly-owned subsidiary of [employer]. . Professional Component performed by [address] [place] [address], [address] - Organ Pipe Finisher: Aleksandra Mathew M.D. [address] [address] PATHOLOGY RPT PROCEDURE Name: ARISTEO JEFFERSON Room #: 363-P DIS IN M.R.#: [id number] Admission: 12/02/18 Date of : 34 Discharge: 12/09/18 Report #: [id number] Path Case #: [id number] Technical Component performed at [address] [place] [address], [place], [address] . . This assay has not been validated on decalcified tissues. Results should be interpreted with caution if this specimen was decalcified given the likelihood of false negativity on decalcified specimens. . Any image(s) that accompany this report is/are a bank representative image(s) only and should not be used to render a diagnosis. A complete copy of the report is on file. . Professional services performed by [employer] at [facility] [place], [address] - [employer]: Aleksandra Mathew M.D. Technical services performed by [employer] at [address] [place] [address]. . (IUV:amj 12/20/2018) . . . . . Special studies report received from [facility], [address] [place] [address], [address], on case [id number], labeled with their number [id number], dated 12/17/2018. . Fluorescence in situ Hybridization (FISH) Report [employer] Analysis . RESULT: Negative for ROS1 gene rearrangement . Specimen Type: Tissue, Left Lung . Indication for Study: Adenocarcinoma . INTERPRETATION: Fluorescence in situ hybridization (FISH) analysis was performed on this patient's paraffin embedded tissue specimen using a dual color break apart DNA probes for ROS1. . One hundred interphase nuclei were examined and no evidence of a ROS1 gene specific rearrangement (split signal pattern) was detected. 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 . Genetic changes other than those assayed here cannot be ruled out on the [facility] [address] [place] [address] PATHOLOGY RPT PROCEDURE Name: ARISTEO JEFFERSON Room #: 363-P DIS IN M.R.#: [id number] Admission: 12/02/18 Date of : 34 Discharge: 12/09/18 Report #: [id number] Path Case #: [id number] basis of this testing. Correlation with clinical and other pathological findings is suggested for a complete interpretation of these results. . See report [id number] for further information. See report [id number] for further information. See report [id number] for further information. See Molecular report [id number] for further information. . The following [employer] FISH analysis was performed on this patient's specimen: . Probe Detection Parameters Result ISCN ROS1 (6q22) Detects a rearrangement Not Detected nuc edita(3'ROS1, of the ROS1 gene ROS1,5'ROS1)x3 approximately 6 (3'ROS1 con 5'ROS1x3 approximately 6) () . Electronically Signed by Chicho Traore, PhD, [facility] on 12/17/2018 at [employer] Chicho Traore, PhD, [facility] Cytogenetics Director . Methodology: The patient specimen is processed onto a glass slide. Fluorescent DNA probe(s) is(are) applied to the cells on the slide under conditions of denaturation followed by hybridization. Stringency washes are applied and the slide is subsequently counterstained. A minimum of 100 interphase nuclei are analyzed unless otherwise indicated above. . References: Candie Cherry, Naveen BORGES, Maribel MATUTE, et al. ROS1 rearrangements define a unique molecular class of lung cancers. J Clin Oncol, 2012;30:863-70. . Naveen BORGES, Maribel Parisi-BRISEIDA, Dean Y-J, et al. Crizotinib in ROS1-rearranged rdu-dnipr-obdc lung cancer. N Engl J Med, 2014;371:1963-71 . Disclaimer [facility] is a business unit of [employer] a wholly-owned subsidiary of [employer]. . Professional Component performed by [facility] [place], [address] - Organ Pipe Finisher: Aleksandra Mathew M.D. Technical Component performed at [address] [place] [address], [address], [address] . This assay has not been validated on decalcified tissues. Results should [facility] [address] [place] [address] PATHOLOGY RPT PROCEDURE Name: ARISTEO JEFFERSON Room #: 363-P DIS IN M.R.#: [id number] Admission: 12/02/18 Date of : 34 Discharge: 12/09/18 Report #: [id number] Path Case #: [id number] be interpreted with caution if this specimen was decalcified given the likelihood of false negativity on decalcified specimens. . Any image(s) that accompany this report is/are a bank representative image(s) only and should not be used to render a diagnosis. . This test was developed and its performance characteristics determined by [employer] It has not been cleared or approved by the Food and Drug Administration. . A complete copy of the report is on file. . Professional services performed by [employer] at [facility] [place], [address] - Organ Pipe Finisher: [employer]. Technical services performed by [employer] at [address] [place] [address], [facility] [address], [place] [address]. . (IUV:amj 12/20/2018) . AZJ/12/20/2018 Addendum Electronically Signed by Kimberlee Franklin MD, Pathologist . 02 Electronically signed: . Kimberlee Franklin MD, Pathologist NPI- [id number] . 01 Gross description: . Received in formalin labeled "Aristeo Jefferson, left lung BX," and additionally labeled on the requisition as "left lower lobe," are 4 distinct needle cores of abreu soft tissue ranging from 0.4-0.7 cm in length and measuring less than 0.1 cm in diameter. The specimen is submitted entirely in cassettes A1 through A3. (TSD; 12/06/2018) TOB/TOB 12/06/2018 1731 Local . 02 Pathologist provided ICD-10: C34.32 . 02 CPT . 920459, S27752, Q49151 Specimen Comment: A courtesy copy of this report has been sent to Specimen Comment: [phone], . Specimen Comment: Report sent to / DR BARDALES Performed at: [address], [place] [id number] MD Fuentes Gutiérrez MD Phone: [phone] Performed at: [address] [address] PATHOLOGY RPT PROCEDURE Name: ARISTEO JEFFERSON Room #: 363-P DIS IN M.R.#: [id number] Admission: 12/02/18 Date of : 34 Discharge: 12/09/18 Report #: [id number] Path Case #: [id number] [address], [place], [place] [id number] MD Kimberlee Franklin MD Phone: [phone]
== END 2018-12-09 16:01 | disposition home or self-care (01) | DRG 180 ==
LOC: ER 14:47 → EROBS 17:13 → ICU 17:13 → 3W 12-08 16:16
PROVIDERS: Emergency Medicine; Internal Medicine; ADMIT Internal Medicine
PROC: 0BBJ3ZX Excision of Left Lower Lung Lobe, Percutaneous Approach, Diagnostic (ICD-10-PCS; principal; 2018-12-06)
DX: C34.90 Malignant neoplasm of unspecified part of unspecified bronchus or lung (principal); G93.41 Metabolic encephalopathy; N17.9 Acute kidney failure, unspecified; B37.9 Candidiasis, unspecified; R91.8 Other nonspecific abnormal finding of lung field; I10 Essential (primary) hypertension; M16.11 Unilateral primary osteoarthritis, right hip; Z85.46 Personal history of malignant neoplasm of prostate; Z87.891 Personal history of nicotine dependence
CPT/HCPCS: 10078; 10879

== ENCOUNTER 2019-01-30 17:13 | Inpatient (IN) | payer OTHER ==
[~2019-01-30] VITALS: Ht 177.8 cm; Wt 72.6 kg
--- NOTE | ~2019-01-30 | HC ---
[facility] [address] [place] [address] CONSULTATION Name: ARISTEO BROWNE Room #: 458-P ADM IN M.R.#: [id number] Admission: 01/30/19 Attend Phys: Bronson Veras MD Discharge: Date of : 34 Report #: [id number] THIS REPORT FOR: //name// CC: Bronson Veras DATE OF SERVICE: 02/02/2019 HISTORY OF PRESENT ILLNESS: The patient is an 83-year-old white male with metastatic prostate CA, right hip pain and inability to walk. He has confirmed bone mets as per his most recent PET scan. He has had problems with decreasing mobility and pain management and has been brought in to [facility]. The plan is to have palliative radiation treatment to his pelvic areas through [facility] outpatient. He does have metastatic cancer with bone mets to the pelvis. The pain is overall better controlled and we are seeing him in rehabilitation medicine consultation. 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 MEDICATIONS: Please see the full medication listing. SOCIAL HISTORY: Lives at home with very supportive who is a former RN. He has been ambulating with a front-wheeled walker and has been going for outpatient physical therapy with the transporting. She will give him a little bit of assistance with sit to stand, but then he has been able to ambulate with the walker. Single story house. He can stay on one floor. Two steps in. They do have family here in the [place] area as well. ALLERGIES: No known drug allergies. REVIEW OF SYSTEMS: He is hard of hearing. Did not offer any current complaints of chest pain, shortness of breath, and abdominal discomfort. He is a little groggy with pain medications. PHYSICAL EXAMINATION: GENERAL: An 83-year-old white male, in no obvious distress, as noted above he is a little hard of hearing, but pleasant. VITAL SIGNS: Temperature 98.4, pulse 80, respirations 16, blood pressure 128/46. HEENT: Facies appeared symmetric. EXTREMITIES: Functional range of motion of the upper extremities. Strength is grade 3+ to 4-/5. Lower extremities: He has some venous stasis changes of his legs distally. No focal calf swelling. Tone appeared to be intact. I would grade his strength at a grade 3+/5. DTRs are 1. He is mod assist with bed mobility, sit to stand, has been min assist with gait up to 7 steps min assist front-wheeled walker. He does have decreased endurance. [facility] [address] [place] [address] CONSULTATION Name: ARISTEO BROWNE Room #: 458-P [facility] IN M.R.#: [id number] Admission: 01/30/19 Attend Phys: Bronson Veras MD Discharge: Date of : 34 Report #: [id number] ASSESSMENT: An 83-year-old white male with the following problem list: 1. Metastatic lung cancer and prostate cancer with confirmed bony metastases to his hips. 2. Prior brain metastases with radiation therapy. 3. Functional mobility and ADL deficits. 4. Pain management issues. PLAN: The patient is a candidate for an acute in-hospital inpatient rehabilitation stay. I had a long discussion with the and discussed pros and cons. She understands that there are risks as far as possible pathologic fracture with the confirmed pelvic metastases, but that in order to get him stronger and able to function to get him back home. There will be the need for rehabilitation therapies to try to achieve this. Goals to try to get him back home as soon as reasonably possible, so that he can then go for his outpatient radiation therapy for the hips and pelvis. She desires for an acute in-hospital inpatient rehabilitation stay for the increased medical management and the therapy program to get him back home. He is a candidate and I feel that he has the tolerance for an acute rehab program. We will plan on transfer to the rehab darling when medically cleared. By: 1128 [id number] Ruben Peñaloza MD /[facility]
[~2019-01-30 17:13] MED LIST: FLOMAX0.4 MG PO; HYDROCHLOROTHIA25 M1 PO; HYDROCODON-ACE1 EAC7 PO; NIFEDIPINE10 MG PO; PEPCID20 MG PO
[2019-01-30 17:14] VITALS: BP 114/59
[2019-01-30] MEDS ORDERED: LORCET 5-325 M1 EACH PO (17:38)
[2019-01-30] MEDS ORDERED: MORPHINE SULFAT15 M3 PO (17:39)
[2019-01-30] MEDS ORDERED: OXYCODONE HCL 55 MG PO (17:39)
[2019-01-30] MEDS ORDERED: MEMANTINE HCL5 MG PO (17:40)
[2019-01-30] MEDS ORDERED: NORCO 5-325 TA1 EAC1 PO (17:40)
[2019-01-30 19:00] LABS: HEMATOCRIT 33.9 % (42.0-52.0); HEMOGLOBIN 11.1 gm/dL (14.0-18.0); MCH 31.4 pg (26.0-34.0); MCHC 32.8 g/dL (28.0-37.0); MCV 95.7 fL (80.0-100.0); PLATELET COUNT 279 thou/uL (150-400); RBC 3.55 mil/uL (4.50-6.00); RDW 15.1 % (10.5-14.5); WBC 9.1 thou/uL (4.0-11.0)
[2019-01-30 19:30] LABS: ABSOLUTE NEUTROPHILS 6.6 thou/uL (1.4-8.2); ANISOCYTOSIS 1+; POLYCHROMASIA OCCASIONAL
[2019-01-30 20:14] LABS: URINE BILIRUBIN NEGATIVE (Negative); URINE BLOOD NEGATIVE (Negative); URINE CLARITY CLEAR; URINE COLOR YELLOW; URINE GLUCOSE-RANDOM* NEGATIVE (Negative); URINE KETONES NEGATIVE (Negative); URINE LEUKOCYTES-REFLEX NEGATIVE (Negative); URINE NITRITE-REFLEX NEGATIVE (Negative); URINE PROTEIN (DIPSTICK) NEGATIVE (Negative); URINE UROBILINOGEN 0.2 E.U./dl (0.2-1.0)
[2019-01-30 20:39] LABS: ANION GAP 8 mmol/L (7-16); BUN 47 mg/dL (7-18); CALCIUM 8.4 mg/dL (8.5-10.1); CHLORIDE 97 mmol/L (98-107); CO2 28 mmol/L (21-32); CREATININE 1.9 mg/dL (0.7-1.3); GLUCOSE 114 mg/dL (74-106); POTASSIUM 3.9 mmol/L (3.5-5.1); SODIUM 133 mmol/L (136-145)
[2019-01-30 20:45] LABS: ALBUMIN 2.8 g/dL (3.4-5.0); DIRECT BILIRUBIN < 0.1 mg/dL (<0.1-0.3); SGOT 30 U/L (15-37); SGPT 32 U/L (30-65); TOTAL BILIRUBIN 0.2 mg/dL (<0.1-1.0); TOTAL PROTEIN 6.4 g/dL (6.4-8.2)
[2019-01-30 21:31] VITALS: BP 144/71
[2019-01-30 22:07] VITALS: BP 94/48
[2019-01-30 22:25] VITALS: BP 149/74
--- NOTE | 2019-01-31 03:58 | NUR ---
PT WAS ADMITTED IN TO THE UNIT AT 2215 FROM THE ER WITH C/O OF UNCONTROLABLE HIP PAINS.PT IS BEING TREATED AT [facility] FOR PROSTATE CANCER METASTASIS TO THE BONES,LUNGS AND BRAIN.PT VERY DROWSY AND HISTORY AND INFORMATION ABOUT PT COLLECTED FROM .PT MGT WAS DONE AT THE ER.PT IS X2 ASSIST AND SHOULD BE TURN SLOWLY DUE TO THE PAIN.PT IS [place], WILL BRING HEARING AIDS THIS MORNING.PT IV ACCESS ON RAC SL.PT PUTS ON A BRIEF.PT IS ON O2 1L WITH NC.CONTINUE TO MONITOR
[2019-01-31 08:00] VITALS: BP 148/62
--- NOTE | 2019-01-31 13:25 | NUR ---
INITIAL ASSESSMENT: SW reviewed chart and spoke with nursing. Pt was admitted from home due to bilateral hip pain and inability to ambulate. Pt with hx of metastatic prostate cancer. Pt [facility]. MEGAN met with pt and at bedside. Introduced role of SW. Pt is alert/orientated x 4. Pt and spouse live at home together. Prior to admission, pt was independent with ADLs. No steps at home. Pt's needs can be met on the ground level. Pt has a cane and walker. Pt is currently doing outpatient therapy at [facility]. Pt has used [facility] in the past. No hx of post-acute placement. Pt's pain is trying to be controlled. Pt's states that once pt's pain is under control, he should be good to return home. 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 MEGAN is following to assist as needed with discharge planning.
[2019-01-31 15:00] VITALS: BP 02/49
[2019-01-31 19:08] VITALS: BP 117/51
--- NOTE | 2019-01-31 20:48 | NUR ---
PATIENT PAIN NOT MANAGED WELL THIS SHIFT. REPORTS NO PAIN WHILE AT REST. PATIENT REPORTS THAT HE ONLY HAS PAIN WHEN OUT OF BED. DIFFICULTY MANAGING FOR PATIENT TO BENEFIT FROM THERAPY OR MOVEMENT OUTSIDE OF HIS BED. PHYSICIAN NOTIFIED THIS SHIFT AND ORDERS RECEIVED FOR SCHEDULED MEDICATION. PATIENT AND ARE AGREEABLE AND PLEASED WITH DECISION TO HAVE PAIN MEDS SCHEDULED. PATIENT AT BEDSIDE THIS SHIFT. PATIENT USING URINAL, ABLE TO USE WHILE STANDING WITH MODERATE ASSIST, STANDBY ASSIST USED WHILE PATIENT IN BED. FALL PRECAUTIONS IN PLACE. PATIENT MAY BENEFIT FROM [facility] ON DISCHARGE.
--- NOTE | 2019-02-01 03:57 | NUR ---
Assumed pt care at 1900. A/OX3, VSS. C/o pain to right hip 08/16. notified for pain meds changes by day RN @ HS;orders implemented. Fall precautions implemented. Resting quietly with no distress noted,oxygen in place at 1L/NC. Will continue to monitor pt.
[2019-02-01 07:52] VITALS: BP 119/61
--- NOTE | 2019-02-01 13:25 | NUR ---
Received awake on bed. Due medications given as prescribed. A+O, LYTTON- with bilateral hearing aids on. With O2 at 1llpm via nasal cannula- for comfort. On regular diet- tolerating well; no nausea, no vomiting and no abdominal pain noted. With NS at 80cc/hr, infusing well at R AC. Assisted in ADLs. With at bedside. Complained of pain, due PRN pain meds given as prescribed.
[2019-02-01 14:51] VITALS: BP 104/53
[2019-02-01 19:55] VITALS: BP 150/67
--- NOTE | 2019-02-02 02:08 | NUR ---
ASSUMED CARE OF PT AT 1900HRS. PT IS ALERT BUT ONLY ORIENTED TO PERSON AND PLACE THIS SHIFT. FALL PRECAUTION IN PLACE. ASSESSMENTS CHARTED. PT COMPLAINED OF SOME PAIN AND WAS TREATED WITH PRN PAIN MEDS. PT WAS ABLE TO GET COMFORTABLE AND SLEEP PART OF THE SHIFT. PT TURNED Q2H. VSS AND NO S/S OF ACUTE DISTRESS. WILL CONTINUE TO MONITOR.
[2019-02-02 04:55] VITALS: BP 123/60
[2019-02-02 07:43] VITALS: BP 128/46
[2019-02-02] MEDS ORDERED: NAMENDA 5 MG TAB5 M1 PO (12:21)
[2019-02-02] MEDS ORDERED: OXYCONTIN20 M1 PO (12:21)
--- NOTE | 2019-02-02 14:17 | NUR ---
[facility] ASSESSED PT AND INDICATED THAT THEY ARE ABLE TO ACCEPT PT FOR ADMISSION THIS DAY. PT AND SPOUSE ARE AWARE AND AGREEABLE. PLAN IS FOR PT TO GO TO [facility] TO REHAB BACK TO HOME WITH SPOUSE AND THEN RESUME CANCER TREATMENTS. NO OTHER CM INTERVENTION INDICATED. CASE CLOSED.
--- NOTE | 2019-02-02 14:42 | NUR ---
Assumed pt care this am. vs stable pain managed with medication partial relief has been noted. 1l O2 vis NC for comfort care on going. IV kept on and patent for rehab to use if necessary upon their requests. No nausea or vomiting has been noted. Pt is a max assists and requires alot of time to transfer, though pt as able to work with PT and OT today. Pt is hard of hearing, is at the bedside. Pt has urinary urgency but tried to use the urinal. Pt has been dc to 5[facility] going to 506, report given to Deb pt transported via bed abnd belongings sent with the pt.
== END 2019-02-02 15:15 | DRG 542 ==
LOC: ER 17:13 → 4W 22:26 → EROBS 22:26 → 4W 22:27 → ENTRNSPT 02-02 14:55 → EDTRNSPTSTS 02-02 14:56 → 4W 02-02 15:15
PROVIDERS: Emergency Medicine; ADMIT Family Medicine
DX: C79.51 Secondary malignant neoplasm of bone (principal); E43 Unspecified severe protein-calorie malnutrition; C34.90 Malignant neoplasm of unspecified part of unspecified bronchus or lung; C61 Malignant neoplasm of prostate; Z87.891 Personal history of nicotine dependence; Z28.21 Immunization not carried out because of patient refusal; Z68.23 Body mass index [BMI] 23.0-23.9, adult; Z79.899 Other long term (current) drug therapy
CPT/HCPCS: 10047

== ENCOUNTER 2019-02-02 13:23 | Inpatient (IN) | payer OTHER ==
[~2019-02-02] VITALS: Ht 180.3 cm; Wt 75.3 kg
[~2019-02-02 13:23] MED LIST changes: +LORCET 5-325 M1 EACH PO; +MEMANTINE HCL5 MG PO; +MORPHINE SULFAT15 M3 PO; +NAMENDA 5 MG TAB5 M1 PO; +NORCO 5-325 TA1 EAC1 PO; +OXYCODONE HCL 55 MG PO; +OXYCONTIN20 M1 PO
--- NOTE | 2019-02-02 14:56 | NUR ---
chart review, cm visited with pt and jennifer at bedside. intro to dcp for acute rehab, team meetings and transition of care " thank you will we want is for his pain to be better so get his legs stronger so can go home and i can get him to this treatment radiation on his hips, he has the tattoos on his hips he was supposed to [facility]. on thursday by pain was bad, so we came here. he already completed radiation for brain, and on sq and iv med for bone and lung. live in house. no steps or stairs. he was independent before pain, used walker, just to weak right know with pain. pt pleasant, quiet, able to communication verbally. noted o2 per nc " not ever been on oxygen before"/pt and . noted pt would close eyes in middle of visit and then would open eyes again if asked him another question. transport here to move pt up to acute rehab, room 506 being moved in the bed. will cont following as needed for dc needs.
[2019-02-02 19:25] VITALS: BP 152/74
--- NOTE | 2019-02-02 19:44 | NUR ---
ASSUMED CARE OF PT AT 1530. REPORT GIVEN TO THIS NURSE FROM NURSE ON PREVIOUS UNIT. ASSISTED PT TO UNIT AND REMAINED AT BEDSIDE UNTIL AFTER DINNER. PT IS A&OX3-4 AND FORGETFUL. VITAL SIGNS ARE STABLE. PT REQUIRES 1L O2 TO MAINTATAIN SPO2 >90%. ADMISSION ASSESSMENT, EDUCAITON, FORMS, VITALS, WEIGHT COMPLETED. PT MEDICATIONS FAXED TO PHARMACY. FALL PRECATIONS IN PLACE AND NURSING WILL CONTINUE TO MONITOR.
--- NOTE | 2019-02-02 22:42 | NUR ---
PT ASSESSMENT COMPLETED AND VSS. MEDS GIVEN ORDERED AND WELL TOLERATED. FALL PRECAUTIONS IN PLACE. PT C/O PAIN. PAIN MEDICATION HELPFUL AT THIS TIME. REPOSITIONING FREQUENTLY USING PILLOWS FOR COMFORT. BLADDER SCAN WNL AT THIS TIME. INC OF LARGE AMOUNTS OF URINE. SLEEPING AT THIS TIME. WILL CONTINUE TO MONITOR FREQUENTLY.
[2019-02-03 05:20] LABS: HEMATOCRIT 31.2 % (42.0-52.0); HEMOGLOBIN 10.1 gm/dL (14.0-18.0); MCH 31.1 pg (26.0-34.0); MCHC 32.3 g/dL (28.0-37.0); MCV 96.1 fL (80.0-100.0); RBC 3.25 mil/uL (4.50-6.00); RDW 14.9 % (10.5-14.5); WBC 11.4 thou/uL (4.0-11.0)
[2019-02-03 05:31] LABS: CREATININE 1.2 mg/dL (0.7-1.3); POTASSIUM 4.2 mmol/L (3.5-5.1)
[2019-02-03 09:54] VITALS: BP 123/53
--- NOTE | 2019-02-03 15:00 | NUR ---
ASSUMED CARES AT 0700. PT VERY SLEEPY. ORIENTED TO PERSON AND PLACE ONLY. FORGETFUL. VITALS REMAIN STABLE. PT CONTINUES TO HAVE JAUNDICE. REDNESS NOTED AROUND COCCYX AREA, SITE CLEANED AND BARRIER CREAM APPLIED. PT REPOSITIONED Q2H. PT REMAINS INCONTINENT OF BOTH BOWEL AND BLADDER, CLEANED AND BEDDINGS CHANGED. REMAINS ON [place] OXYGEN VIA NC WITH SATS >92%. IV ON RIGHT AC REMAINS PATENT AND INTACT. PT UP WITH MAX ASSIST OF 2, GB AND W/C. Q1H VISUAL CHECK. CALL LIGHT WITHIN REACH. FALL PRECAUTIONS IN PLACE. NB: DR DE LA ROSA TALKED WITH PT'S REGARDING CODE STATUS, AND DAUGHTER WOULD LIKE PT TO REMAIN FULL CODE AND ALL MEASURES TO SAVE LIFE UTILISED.
[2019-02-03 20:25] VITALS: BP 133/62
--- NOTE | 2019-02-03 22:28 | NUR ---
PT ASSESSMENT DONE AND VSS. MEDS GIVEN AND WELL TOLERATED. FALL PRECAUTIONS IN PLACE. SLEEPING WELL. HOURLY ROUNDING. CALL LIGHT IN REACH. WILL CONTINUE TO MONITOR.
[2019-02-04 08:15] VITALS: BP 124/69
--- NOTE | 2019-02-04 08:57 | NUR ---
ASSUMED CARE AT 0700. PATIENT IS ALERT AND ORIENTED X4, BUT FORGETFUL. PATIENT IS VERY [place], AND THE TOOK HIS HEARING AIDS HOME. LUNGS ARE CLEAR AND DEMINISHED. ABD IS SOFT WITH BSX4. PATIENT IS INCONTINENT OF URINE AND STOOL. PATIENT IS TURN Q 2 HOURS. FALL AND SAFETY PROTOCOLS IN PLACE. C/O HIP PAIN. MEDICATED WITH SCED PO PAIN MEDS. PATIENT CONTINUES TO PROGRESS SLOWLY TOWARDS D/C GOALS. WILL CONTINUE TO MONITER.
--- NOTE | 2019-02-04 10:25 | NUR ---
Nutrition: Consult for "Ensure dietary needs are being met." Pt admitted with lung cancer with bone METS. Eating 75-100% of meals. +BM today. Wt: 160#. Albumin 2.8. Appears pt is eating meals well. Home vitamins just restarted. RD will order Ensure Enlive for added nutrition intake. Follow up Thursday02/07/19 for further po intake, wt, labs. Mild risk at this time.
[2019-02-04 19:12] VITALS: BP 130/64
--- NOTE | 2019-02-05 03:09 | NUR ---
ASSESSMENT: PT REMAIN ALERT AND ORIENT TIMES THREE, SLEEPY YET EASY TO AROUSE. VSS, AFEBRILE. OSAGE. ON 2 LITERS PER NC, SATS 97% TURNED EVERY TWO HOURS, DOES ATTEMPT TO ASSIST WITH TURNS. SLOW PROGRESS TOWARDS DC GOALS. WILL CONTINUE TO MONITOR.
[2019-02-05 09:36] VITALS: BP 128/70
--- NOTE | 2019-02-05 17:27 | NUR ---
ALERT AND ORIENTED X3 CONFUSED BUT REORIENTS EASILY VERY PLEASANT AND COOPERATIVE. WORKS WELL WITH THEAPIES. INCONTINENT OF URINE AND SMEARS OF BROWN STOOL. O2 AT 4 L. GOOD APPETITE FOR MEALS ATE ALL MEALS IN DINNING ROOM. REMAINED UP IN CHAIR ALL SHIFT.
[2019-02-05 20:15] VITALS: BP 148/70
--- NOTE | 2019-02-06 00:18 | NUR ---
PT ALERT AND ORIENTED X 2. 02 ON AT 4L PER NC CONT. INCONT OF URINE. PT TOOK HS MEDS IN APPLESAUCE WITHOUT DIFFICULTY. SCROTUM AND GROIN RED. BARRIER CREAM APPLIED AFTER INCONT. PT DENIES PAIN OR DISCOMFORT. DOES SEEM TO BE IN PAIN WITH MOVEMENT FOR CARES. SCHEDULED OXYCONTIN GIVEN ORDERED. TURNED Q2H. BED ALARM ON FOR SAFETY. PT APPEARS TO BE SLEEPING ON HOURLY ROUNDS.
[2019-02-06 08:52] VITALS: BP 146/79
--- NOTE | 2019-02-06 15:59 | NUR ---
ASSUMED CARE OF PT AT 0715. PT IS A&O TO SELF, TIME, PLACE. IS ON 3-4L OF O2/NC. REPORTS BI LAT LE PAIN THAT IS BEING MANAGED WITH SCHEDULDED PAIN MEDS. PT WAS OFFERED PRN PAIN MEDS BUT REFUSES. IS UP WITH MAX ASSIST 1-2, GB, WALKER, STAND PIVOT. FALL PRECAUTIONS & HOURLY ROUNDING MAINTAINED THIS SHIFT. PT'S IS VERY INVOLVED. HAS BEEN TO THE NURSES STATION APPROXIMATELY 6 TIMES BEFORE LUNCH. SHE REQUESTED A COPY OF MED LIST WITH EXACT TIMES MEDICATIONS WERE GIVEN FOR HS & DAY SHIFT MEDS. SHE ALSO SPOKE WITH THE WHO ROUNDED ON PT TODAY & REQUESTED FOR PT TO TAKE OWN HOME VITAMINS APPROX 6 BOTTLES. VITAMINS WERE LABELED & SENT TO IN PT PHARM WITH [employer]. PT SPOUSE HAS ASKED ABOUT THEM 3XS SINCE, WAS INFORMED THAT SHE WOULD BE MADE AWARE WHEN THE PT COULD TAKE THEM ONCE PROTOCOLS ARE IN PLACE. LABS & VITALS REVIEWED. PT IS UP IN THE RECLINER, RELAXING, CALL LIGHT WITHIN REACH. WILL CONTINUE TO MONITOR.
[2019-02-06 19:15] VITALS: BP 145/73
--- NOTE | 2019-02-07 00:12 | NUR ---
PT ALERT AND ORIENTED X 2. INCONT OF URINE. PT TOOK HS MEDS CRUSHED IN YOGURT WITHOUT DIFFICULTY. 02 ON AT 3L PER NC CONT. PT C/O PAIN IN HIS FEET. SCHEDULED OXYCONTIN GIVEN AT HS. PT APPEARS TO BE SLEEPING SINCE PAIN MED GIVEN. BED ALARM ON FOR SAFETY. TURNED Q2H.
[2019-02-07 08:40] VITALS: BP 114/54
--- NOTE | 2019-02-07 11:27 | NUR ---
ASSUMED CARE OF PT AT 0715. REPORTS SLEPT GOOD. PT IS A&O TO SELF, TIME, PLACE. SAT 80% ON RA THIS AM. ENCOURAGED PT DEEP BREATH AND CHECK O2 ON THUMBS SAT 95% ON RA. WILL CONTINUE TO MONITOR NEED FOR O2. C/O RIGHT HIP PAIN. OXYCOTIN AND HYDROCODONE SCHEDULE GIVEN ORDERED. RATES PAIN 6/10 AND DOWN TO 4/10. IS UP WITH MOD-MAX ASSIST 1X, GB, WALKER, STAND PIVOT. PT'S IS VERY INVOLVED AND WANTS TO KNOW WHAT MEDS PT TOOK SINCE LAST NIGHT. MAR PRINTED OUT PER HER REQUESTS. MEDICATIONS WERE GIVEN FOR HS & DAY SHIFT MEDS. PT UP WITH PT AT GYM. OT GIVEN PT SHOWER AT THIS MOMENT. OFFER TOILETING FREQUENTLY. OFFERED SUPPORTIVE CARE. ENCOURAGED PT DEEP BREATHING AND GO TO DINNING ROOM FOR MEALS. UP TO DINNING ROOM. ATE 90% BREAKFAST. FALL PRECAUTIONS & HOURLY ROUNDING MAINTAINED THIS SHIFT. CALL LIGHT WITHIN REACH. WILL CONTINUE TO MONITOR.
[2019-02-07 20:13] VITALS: BP 141/69
--- NOTE | 2019-02-07 23:30 | NUR ---
PT ASSESSMENT DONE AND VSS. MEDS GIVEN AND WELL TOLERATED. FALL PRECAUTIONS IN PLACE. SLEEPING WELL. HOURLY ROUNDING. CALL LIGHT IN REACH. WILL CONTINUE TO MONITOR.
--- NOTE | 2019-02-08 07:06 | HC ---
[facility] [place] [place] [address] CONSULTATION Name: ARISTEO BROWNE Room #: 506-1 ADM IN M.R.#: [id number] Admission: 02/02/19 Attend Phys: Ruben Peñaloza MD Discharge: Date of : 34 Report #: [id number] THIS REPORT FOR: //name// CC: Ruben Veras DATE OF SERVICE: 02/05/2019 NEURO BEHAVIORAL STATUS EXAM. ATTENDING PHYSICIAN: Ruben Peñaloza MD LOAD DISPATCHER: Bronson Martines, PhD CLINICAL PRESENTATION: The patient is an 83-year-old white male admitted to the rehabilitation unit for comprehensive inpatient rehabilitation program. He has a history of metastatic prostate CA, metastatic lung CA, right hip pain and inability to walk. The patient was diagnosed with bone metastases involving the pelvic area. He has had problems with decreased mobility and pain management prior to coming to the [facility]. His is a retired nurse and has been able to manage his care in their home. She is hoping that he can return home and is planning to take care of him following his hospitalization and rehabilitation. As indicated, his past medical history includes stage 4 non-cell lung carcinoma with prior brain metastasis with radiation and prostate CA. Pain management issues, functional mobility and activities of daily living deficits are also reported. A complete description of his medical condition and history can be found in his medical records. Neuropsychological consultation was requested to provide assistance in the assessment of cognitive and emotional status and to provide recommendations and services. He was living with his in their home prior to this recent deterioration in functioning. The resurgence of cancer and metastasis was identified in November of 2018. He has one child and five grandchildren. 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 He is a from the [employer]. The patient is a high school graduate. TECHNIQUES UTILIZED: Clinical interview, review of medical records, staff consultation and behavioral observation, mini mental status exam 2 standard versions, clock drawing, digits forward and digits backward and family interview ? . EXAMINATION FINDINGS: The patient was alert and cooperative with the assessment. He was unable to describe the reason for his hospitalization. He [facility] [address] [place] [address] CONSULTATION Name: ARISTEO BROWNE Room #: 506-1 ADM IN M.R.#: [id number] Admission: 02/02/19 Attend Phys: Ruben Peñaloza MD Discharge: Date of : 34 Report #: [id number] presents with decreased verbal fluency and reduced speed of processing. Reduced auditory comprehension is also suggested. He is hard of hearing. His has a tendency to interject during the assessment. She attempts to minimize the difficulty he is having with cognition and is likely having increased anxiety in regard to his wellbeing and deterioration in functioning. Symptoms reported include anxiety, difficulty with memory and word finding. He does not report difficulty with sleep, appetite or depression. However, the patient intermittently was anxious during the assessment and appeared to experience intermittent problems with pain. His performance on the MMSE 2 brief version was extremely low with a raw score of 10/16. He was 3/3 for initial registration, 2/5 for orientation to time, 5/[address] and 0/3 for immediate recall of 3 items after a brief time delay and distraction. Perseveration was noted in his responses to items on the brief version. Performance on the MMSE 2 standard version was extremely low with a raw score of 17/30, which is a T score of 13. The patient was over 0/5 for serial 7's, 2/2 for naming, 1/1 for repetition, 3/3 for auditory comprehension. He was unable to read and follow a single written command. However, he was able to follow verbal command. Decreased reading comprehension is suggested. The patient could write a sentence. Difficulty with copying a simple geometric design is noted. The patient was unable to complete clock drawing. He could not draw a clock or place the numbers within the clock. With the outside structure provided, he was still unable to place the hands at designated time. Digits forward was at the 3rd percentile and in the borderline range. Digits backward with 0 which was at the first percentile and extremely low. The patient is presenting with severe deficits in cognition. Impairment is noted with immediate recall, sustained concentration, visual spatial construction and visually mediated comprehension. Deficits in working memory and higher level executive functioning are noted. 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 RECOMMENDATIONS: Continued assessment to clarify the severity of cognitive dysfunction. His indicates a desire to provide assistance in the management of his care upon discharge and will be able to provide the necessary supervision with medication and finances. The patient will require supervision to maintain safety. The use of relaxation strategies for the patient and [facility] [address] [place] [address] CONSULTATION Name: ARISTEO BROWNE Room #: 506-1 [facility] IN M.R.#: [id number] Admission: 02/02/19 Attend Phys: Ruben Peñaloza MD Discharge: Date of : 34 Report #: [id number] educational information for his regarding breathing techniques that she can help him utilize. He may benefit from an antidepressant to assist in pain management. Thank you very much for allowing me to provide the consultation on this patient. <ELECTRONICALLY SIGNED> By: Bronson Martines, PhD 02/08/19 0706 [id number] Bronson Martines, PhD /nt
[2019-02-08 07:10] VITALS: BP 118/50
--- NOTE | 2019-02-08 11:33 | NUR ---
ASSUMED CARE OF PT AT 0715. REPORTS SLEPT GOOD. HAD INCONT BM THIS AM. ASSISTED WITH CLEANING BEFORE PT GETS UP THIS AM. PT IS A&O TO SELF, TIME, PLACE. VSS ON RA. C/O RIGHT HIP PAIN. OXYCOTIN AND HYDROCODONE SCHEDULE GIVEN ORDERED. RATES PAIN 6/10 AND DOWN TO 4/10. IS UP WITH MOD-MAX ASSIST 1X, GB, WALKER, STAND PIVOT. MORNING MEDS GIVEN WITH THIN WATER. OXYCOTIN GIVEN WITH BREAKFAST AND OTHER MEDS GIVEN AFTER PT ATE. AT BEDSIDE. MAR PRINTED OUT PER HER REQUESTS. PT HAD OT THIS AM. PT IS WORKING WITH PHYSICAL THERAPIST IN GYM AT THIS MOMENT. OFFER TOILETING FREQUENTLY. OFFERED SUPPORTIVE CARE. FALL PRECAUTIONS & HOURLY ROUNDING MAINTAINED THIS SHIFT. CALL LIGHT WITHIN REACH. WILL CONTINUE TO MONITOR.
--- NOTE | 2019-02-08 13:12 | NUR ---
team meeting, recommendation: re team, reported that there is 2 wider steps to get into home. temp ramp with wheel chair vs transport chair . [facility] (pt, ot, nursing), to assist with meds and bills. discuss dcp option with , snf, palliative. he still using o2 at hs and destat at home.
[2019-02-08 20:18] VITALS: BP 147/59
--- NOTE | 2019-02-09 04:22 | NUR ---
PT ASSESSMENT DONE AND VSS. MEDS GIVEN AND WELL TOLERATED. FALL PRECAUTIONS IN PLACE. SLEEPING WELL. HOURLY ROUNDING. CALL LIGHT IN REACH. WILL CONTINUE TO MONITOR.
[2019-02-09 07:05] VITALS: BP 137/60
--- NOTE | 2019-02-09 09:29 | NUR ---
ASSUMED CARE OF PT AT 0715. ASSISTED TO [facility], HE MAIA TO URINATE BUT NOT ABLE TO, C/O PAINFUL URINATION. NOTIFIED DR. DE LA ROSA AND OBTAIN T.O FOR UA. STRAIGHT CATH PT AND HAD 100CC YELLOW URINE. PT ALSO HAD MODERATED FORMED BM THIS AM. UP TO DINNING ROOM ATE 100% BREAKFAST. PT HAS CHRONIC RIGHT HIP PAIN. OXYCOTIN AND MORNING MEDS GIVEN SCHEDULE ONE AT THE TIME WITH YOGURT. PT IS A&O TO SELF, TIME, PLACE. SLOW IN RESPONSE BUT ABLE TO FOLLOW SIMPLE COMMANDS. VSS ON RA. UP WITH MAX ASSIST 1X, GB, WALKER, STAND PIVOT. PT IS WORKING WITH SPEECH THERAPIST AT THIS MOMENT. OFFER TOILETING FREQUENTLY. OFFERED SUPPORTIVE CARE TO PT AND HIS . FALL PRECAUTIONS & HOURLY ROUNDING MAINTAINED THIS SHIFT. CALL LIGHT WITHIN REACH. WILL CONTINUE TO MONITOR.
[2019-02-09 10:48] LABS: URINE BILIRUBIN NEGATIVE (Negative); URINE BLOOD TRACE (Negative); URINE CLARITY HAZY; URINE COLOR YELLOW; URINE GLUCOSE-RANDOM* NEGATIVE (Negative); URINE KETONES NEGATIVE (Negative); URINE LEUKOCYTES-REFLEX 3+ (Negative); URINE NITRITE-REFLEX POSITIVE (Negative); URINE PROTEIN (DIPSTICK) NEGATIVE (Negative); URINE UROBILINOGEN 0.2 E.U./dl (0.2-1.0)
[2019-02-09 11:32] LABS: SQUAMOUS None Seen /LPF (0-3)
[2019-02-09 11:33] LABS: BACTERIA-REFLEX >30 Many /HPF (None Seen); CASTS None Seen /LPF (None Seen); CRYSTALS None Seen /LPF (None Seen); URINE RBC 0-2 Rare /HPF (0-2)
--- NOTE | 2019-02-09 15:56 | NUR ---
PT'S REQUESTED TO TALK TO THE NM ABOUT CONCERNS. SHE REQUESTED A MORE SET-SCHEDULE FOR THERAPIES THAT WOULD BE TIMED ACCORDING TO PAIN MEDS, TO MAXIMIZE HIS TIME IN PHYSICAL THERAPY. PHYSICAL THERAPIST BIRDIE WAS VERY HELPFUL, AND CREATED A SET SCHEDULE PER 'S REQUEST FOLLOWS: 0700 PAIN MED, 0800 HIGH PROTEIN BREAKFAST, 0900 45 MIN WITH PHYSICAL THERAPY, 1000 OT, 1100 PAIN MED AND OPTICAL ADVISOR, 1200 LUNCH, AND 1300 15 MIN PT. THIS WAS COMMUNICATED TO THE THERAPY TEAM PER BIRDIE. PT'S ALSO AGAIN REQUESTED THAT WE TRY TO GET THE PHARMACY TO ALLOW PT TO TAKE HIS OWN SUPPLY OF B-COMPLEX VITAMIN, AND ALSO STATED THAT SHE WANTED HIM TO TAKE ALL OF HIS OWN HOME-MED VITAMINS, THAT DR. DE LA ROSA GAVE THE OK ALREADY FOR THIS. EXPLAINED HOSPITAL POLICY REGARDING ONLY GIVING HOME MEDS THAT ARE NOT ALREADY ON THE HOSPITAL FORMULARY. SHE STATED THAT SHE UNDERSTOOD, BUT THAT WE WERE ONLY GIVING THE THIAMINE FROM OUR STOCK AND NOT THE WHOLE B-COMPLEX. THIS WAS CALLED TO NIVIA GRIMALDO AT DR. DE LA ROSA'S OFFICE. PER DR. DE LA ROSA, ORDER WAS RECEIVED VIA PHONE TO GIVE THE PATIENT HIS OWN SUPPLY OF B-COMPLEX AND OF VITAMIN K2. ORDER TO BE PLACED IN [employer], AND PHARMACIST WAS NOTIFIED.
--- NOTE | 2019-02-09 16:03 | NUR ---
PATIENT PARTICIPATES IN COMMUNITY REINTEGRATION ACTIVITY WITH ASSIST OF OCCUPATIONAL THERAPIST, SEE OT NOTE FOR DETAILS.
[2019-02-09 19:20] VITALS: BP 113/59
--- NOTE | 2019-02-10 03:30 | NUR ---
CLEANED, DRIED, AND TURNED TO SIDE. THERMOSTAT ADJUSTED TO MAKE ROOM WARMER AND PATIENT MORE COMFORTABLE. OFFERED URINAL WITHOUT SUCCESS. STATES RIGHT HIP NOT BOTHERING HIM AT THIS TIME. KEEPING O2 ON AT THIS TIME, REMOVED TWICE DURING EVENING HOURS BEFORE HS MEDS GIVEN AT 2044.
[2019-02-10 09:30] VITALS: BP 110/47
--- NOTE | 2019-02-10 18:35 | NUR ---
ASSUMED CARE OF PT AT 0715. PT IS A&OX2-3 FORGETFUL, VITAL SIGNS ARE STABLE. PT REPORTS PAIN IN RIGHT HIP, BUT IS UNABLE TO ASSIGN NUMERICAL VALUE TO PAIN. PT DOES GRIMICE AND CRY OUT WITH MOVEMENT. MEDICATIONS GIVEN PER PREFERRED MEDICATIONS SCHEDULE. AT BEDSIDE MOST OF SHIFT. DISCUSSED MEDICATION AND CHANGES TO MEDICATIONS WITH OFFICE SERVICES ASSISTANT, HOME MEDS SENT TO PHARMACY. PARTICIPATED IN SCHEDULED THERAPIES. O2 AT 4L VIA NC. PT O2 DROPS INTO LOW TO MID 80'S WHEN ON ROOM AIR. DOES NOT CALL APPROPRIATELY FOR ASSISTANCE, BUT DOES NOT ATTEMPT TO GET OUT OF BED. FALL PRECAUTIONS IN PLACE AND NURSING WILL CONTINUE TO MONITOR.
[2019-02-10 19:43] VITALS: BP 126/54
--- NOTE | 2019-02-11 01:53 | NUR ---
RIGHT BUTTOCK REDNESS, PATIENT OFFERED URINAL, BUT HAS BEEN INCONTINTENT OF URINE AND SMALL SMEAR OF LIGHT BROWN STOOL. TURNED SIDE TO SIDE. MOISTURE BARRIER TO GROIN AND RECTUM. NO PAIN AT REST, TENSES UP WITH TURNS IF HE IS STARTLED MORE THAN PAINED. TOLERATING PILLS WHOLE, GIVEN IN APPLESAUCE TO ENCOURAGE SWALLOWING AFTER HE ASKED IF HE SHOULD CHEW THEM. PATIENT ENCOURAGED TO SWALLOW PILLS WHOLE AND TO KEEP HIS OXYGEN ON TO MAINTAIN O2 SAT GREATER THAN 90%
[2019-02-11 05:55] LABS: HEMATOCRIT 29.9 % (42.0-52.0); HEMOGLOBIN 9.6 gm/dL (14.0-18.0); MCH 31.2 pg (26.0-34.0); MCV 97.6 fL (80.0-100.0); RBC 3.07 mil/uL (4.50-6.00); RDW 15.6 % (10.5-14.5); WBC 12.4 thou/uL (4.0-11.0)
[2019-02-11 06:01] LABS: CALCIUM 8.4 mg/dL (8.5-10.1); CREATININE 1.1 mg/dL (0.7-1.3); POTASSIUM 5.3 mmol/L (3.5-5.1)
[2019-02-11 07:51] VITALS: BP 121/61
--- NOTE | 2019-02-11 10:47 | NUR ---
spoke with if she had picked hh to send referral to . not sure now going to look at some short rehab places around [facility] if he still having pain going to maybe to that, my daughter and i are looking on thursday. i would like to still bring him home but not sure if going to be able to get him in and out of house for his tx. re-education on private duty extra help and wheel chair transportation with [employer] [phone].
--- NOTE | 2019-02-11 14:00 | NUR ---
ASSUMED CARE AT 0700. PATIENT IS ALERT AND ORIENTED X2. PATIENT PETERS'S, PROMOTIONS ASSOCIATE ARE EQUAL. LUNGS ARE CLEAR AND DEMINISHED. CONTINUES ON ABT FOR UTI. TOLERATING ABT'S WITHOUT ADVERSE REACTION. MOISTURE BARRIER TO BOTTOM. 02 AT 2-3 L PER N/C. PATIENT IS INCONTINENT OF URINE. FALL AND SAFETY PROTOCOLS IN PLACE. C/O BILATERAL HIP PAIN. CONTINUES ON SCED PAIN MEDS. CONTINUES TO PROGRESS SLOWLY TOWARDS D/C GOALS. UP IN W/C TO DINING ROOM FOR MEALS. WILL CONTINUE TO MONITER.
--- NOTE | 2019-02-11 16:06 | NUR ---
THIS PATIENT IS UNABLE TO SAFELY PERFORM ADLS WITHOUT USE OF ULTRA LIGHTWEIGHT MANUAL WHEELCHAIR. THIS PATIENT IS NOT INDEPENDENTLY AMBULATORY FOR PURPOSEFUL DISTANCE, WITH SIGNIFICANT CONCERNS REGARDING INTRACTABLE PAIN AND FALL RISK WITH AMBULATION. AN ULTRA LIGHTWEIGHT WHEELCHAIR WOULD ALLOW PATIENT TO MANUEVER INDEPENDENTLY WITHIN HOME ENVIRONMENT AND THE PATIENT HAS AN APPROPRIATE HOME SET UP FOR WHEELCHAIR MOBILITY IN HOME. THE PATIENT DEMONSTRATES ABILITY TO SELF PROPEL A MANUAL WHEELCHAIR AND WOULD REQUIRE USE OF THIS CHAIR FOR MOBILITY AND ADLs. THE PATIENT CANNOT SELF PROPEL A STANDARD WHEELCHAIR DUE TO FATIGUE AND LOWER EXTREMITY WEAKNESS. THE PATIENT HAS DEMONSTRATED ABILITY TO PROPEL WHEELCHAIR IN ULTRA LIGHTWEIGHT WHEELCHAIR WITHOUT PHYSICAL ASSISTANCE.
--- NOTE | 2019-02-11 16:25 | PLAN ---
[facility] [place] [address] [address] [place] [address] REHAB UNIT PLAN OF CARE Name: ARISTEO BROWNE Room #: 506-1 ADM IN M.R.#: [id number] Admission: 02/02/19 Attend Phys: Ruben Peñaloza MD Discharge: Date of : 34 Report #: [id number] THIS REPORT FOR: //name// CC: Ruben Veras DATE OF SERVICE: 02/04/2019 PROGRESS NOTE/OVERALL PLAN OF CARE SUBJECTIVE: The patient is seen back in followup. He is in no distress. He is a little sleepy at times with the pain medications, but otherwise is doing well. His temperature 36.2, pulse 84, respirations 18, blood pressure 124/69. He is following basic commands. No focal neuro changes. Functionally, he did get up in therapies yesterday with bed mobility, mod assist. Transfers are max assist, sit to stand and bed to wheelchair is mod assist. He did take 10 steps min assist with a front-wheeled walker. In occupational therapy, he is max assist for toileting, upper body dressing is min assist, lower body dressing is max assist. Speech therapy is further evaluating. ASSESSMENT: 1. 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 2. Prior brain metastases with radiation therapy. 3. Prostate cancer. 4. Pain management issues. 5. Decreased functional mobility and ADL deficits along with cognitive issues. 6. History of some dementia noted premorbidly. Nevertheless, living in the community with his supportive . PLAN: The overall plan of care is based on the preadmission screen, post-admission physician evaluation and information garnered from therapy assessments. 1. Estimated length of stay is probably around 10-14 days pending progress. 2. Medical prognosis is reasonably good. 3. Anticipated interventions includes the interdisciplinary acute inpatient rehabilitation program. 4. Anticipated functional outcomes would be for the patient to become modified independent with transfers, mobility, ADLs, improved cognition, so that he can hopefully return back to the home setting. 5. Discharge destination is back home with . 6. Expected therapy by discipline includes PT, OT and speech 1 hour per day [address] [address] REHAB UNIT PLAN OF CARE Name: ARISTEO BROWNE Room #: 506-1 ADM IN .R.#: [id number] Admission: 02/02/19 Attend Phys: Ruben Peñaloza MD Discharge: Date of : 34 Report #: [id number] each five days a week throughout the duration of the acute inpatient rehabilitation stay. <ELECTRONICALLY SIGNED> By: Ruben Peñaloza MD 02/11/19 1625 [id number] [id number] Ruben Peñaloza MD /nt
--- NOTE | 2019-02-11 16:25 | H ---
[facility] [address] [place] [address] HISTORY AND PHYSICAL Name: ARISTEO BROWNE Room #: 506-1 ADM IN M.R.#: [id number] Admission: 02/02/19 Attend Phys: Ruben Peñaloza MD Discharge: Date of : 34 Report #: [id number] THIS REPORT FOR: //name// CC: Ruben Veras DATE OF SERVICE: 02/02/2019 HISTORY AND PHYSICAL/POSTADMISSION PHYSICIAN EVALUATION HISTORY OF PRESENT ILLNESS: The patient is an 83-year-old white male with a history of metastatic prostate CA, metastatic lung CA, right hip pain and inability to walk. He has confirmed with bone mets involving his pelvic area per his most recent PET scan. He has had problems with decreasing mobility and pain management and was originally brought in to [facility] on 01/30/2019. The plan is to have palliative radiation treatment to his pelvic areas through [facility] outpatient when he is more functionally mobile and is able to take him back and forth for his outpatient radiation. He does have the metastatic cancer with bone mets to the pelvis. He was felt to be better overall controlled and the goal now is to improve his strength and basic functional mobility and ADLs, so that the can take him home. 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 He has the above noted prostate CA. MEDICATIONS: Please see the full medication listing. ALLERGIES: No known drug allergies. SOCIAL HISTORY: Lives at home with his supportive who is a former RN. He had been ambulating with a front-wheeled walker and going for outpatient physical therapy with the assisting. He was given a little bit of assistance with sit to stand, but then he has been able to ambulate with a walker. Single story house. He can stand one floor. Two steps in. They have other family here in the [place] area as well. REVIEW OF SYSTEMS: Sleepy this morning with no complaints of chest pain, shortness of breath or abdominal discomfort. Hip pain appears to be under control. PHYSICAL EXAMINATION: GENERAL: An 83-year-old male in no obvious distress. VITAL SIGNS: Temperature 98.2, pulse 95, respirations 20, blood pressure 122/53 in no distress. HEENT: Facies appeared symmetric. He is hard of hearing. He is on 1 liter nasal cannula. [facility] [address] [place] [address] HISTORY AND PHYSICAL Name: ARISTEO BROWNE Room #: 506-1 ADM IN M.R.#: [id number] Admission: 02/02/19 Attend Phys: Ruben Peñaloza MD Discharge: Date of : 34 Report #: [id number] CHEST: Sounded clear to auscultation, maybe some diffuse breath sounds throughout. CARDIOVASCULAR: Regular rate and rhythm. ABDOMEN: Bowel sounds positive, nontender. GENITOURINARY AND RECTAL: Deferred. EXTREMITIES: He does have functional range of motion of both upper extremities with strength grade 3+ to 4-/5. Lower extremity, some venous stasis changes of his legs distally. No focal calf swelling. Tone appeared to be intact. Strength is grade 3+/5. DTRs are 1. He has been needing assistance with basic transfers. Prior to admission, he had been ambulating a few short steps with min assist with a walker. ASSESSMENT: An 83-year-old white male with the following problem list: 1. Metastatic lung cancer and prostate cancer with confirmed metastases to the hips. 2. Prior brain metastases with radiation therapy. 3. Pain management issues. 4. Functional mobility and ADL deficits. PLAN: The patient has been admitted for acute in-hospital inpatient rehabilitation. From a postadmission physician evaluation perspective, there are no relevant changes since the preadmission screening. Please see the prior and current medical and functional conditions and comorbidities. Please see the patient's previous and current functional status. As far as risk of complications, the patient has multiple medical comorbidities as noted above. The initial plan of care involves the interdisciplinary acute inpatient rehabilitation program with the goal enabling him to achieve a functional level similar to his prior functional status. Goal would be for him to be able to be up ambulating reasonable distances with a walker so he can get in and out of car and can transport him to outpatient radiation therapy. He needs to be able to do basic transfers such that the can assist him and to do basic ADLs. We also have speech therapy working with him on basic cognitive issues. Prognosis from a rehabilitation perspective is reasonably good. Estimated length of stay is probably 7-10 days. Potential barriers would include his multiple medical comorbidities and decreased functional status. I had a discussion with the regarding the relative risks and we will use gentle therapy to gradually improve his strength and mobility and ADL independence. She understands regarding the obvious risk of potential pathologic fracture, but again the goal would be to try to improve his overall functional mobility in a fairly short term manner so we can get him home and starting his radiation therapy to the pelvic and hip area. The patient meets diagnostic criteria for an acute in-hospital inpatient rehabilitation stay. He meets the medical necessity criteria. He does have the [facility] [address] [place] [address] HISTORY AND PHYSICAL Name: ARISTEO BROWNE Room #: 506-1 ADM IN M.R.#: [id number] Admission: 02/02/19 Attend Phys: Ruben Peñaloza MD Discharge: Date of : 34 Report #: [id number] tolerance for therapies and has appropriate discharge goals back to the home setting. <ELECTRONICALLY SIGNED> By: Ruben Peñaloza MD 02/11/19 1625 [id number] [id number] Ruben Peñaloza MD /[facility]
[2019-02-11 19:13] VITALS: BP 137/61
--- NOTE | 2019-02-12 03:49 | NUR ---
assumed care at approx 1900 evening 02/11. pt lying in bed at change of shift sleeping. pt awoken for hs meds taking with applesauce. pt incontinent of urine and changing of towel in between legs frequently. pt appears to be sleeping soundly with hourly rounding checks. bed alarm on and call light in reach. will continue to monitor.
[2019-02-12 10:53] VITALS: BP 134/59
--- NOTE | 2019-02-12 18:45 | NUR ---
PATIENT NOW SLEEPING. HE IS ALERT TO SELF. HAD TWO INCONT BMS TODAY. HE DENIES PAIN AT THIS TIME. ON SCHEDULED PAIN MEDICATION. WILL CONT WITH PLAN OF CARE.
[2019-02-12 20:18] VITALS: BP 138/65
--- NOTE | 2019-02-13 02:10 | NUR ---
assumed care at approx 1900 evening 02/12. pt lying in bed with head of bed elevated dozing off and on. pt pleasant and cooperative, took hs meds with applesauce and water tolerating well. pt on room air, appears to be sleeping soundly with hourly rounding checks. bed alarm on and call light in reach. will continue to monitor.
[2019-02-13 07:40] VITALS: BP 134/68
--- NOTE | 2019-02-13 15:39 | NUR ---
ASSUMED CARE OF PT AT 1000. REQUESTS THIS HAND OR MACHINE PASTER TO TAKE CARE OF HER . MORNING MEDS GIVEN BY DILLAN ARMAS. HYDROCODONE GIVEN AT 11AM ORDERED. RECEIVED REPORT HAS SORE ON LEFT HEAL. NOTED LEFT HEAL PINK ON THE SURFACE, SUPERFICIAL SKIN FELT OFF. NO BLEEDING, NO INFECTION. APPLIED BETADINE AND ENCOURAGE PT TO ELEVATE HEAL OFF THE BED. PT HAS CHRONIC RIGHT HIP PAIN. IS A&O TO SELF, TIME, PLACE. SLOW IN RESPONSE BUT ABLE TO FOLLOW SIMPLE COMMANDS. VSS ON RA. UP WITH MOD ASSIST 1X, GB, WALKER, ABLE TO WALK 48 STEPS WITH PHYSICAL THERAPIST. ENCOURAGED PT TO WALK TO DINNING ROOM RATHER USING WC. PT IS WORKING WITH SPEECH THERAPIST AT THIS MOMENT. OFFER TOILETING FREQUENTLY. OFFERED SUPPORTIVE CARE TO PT AND HIS . FALL PRECAUTIONS & HOURLY ROUNDING MAINTAINED THIS SHIFT. CALL LIGHT WITHIN REACH. WILL CONTINUE TO MONITOR.
[2019-02-13 19:25] VITALS: BP 156/81
--- NOTE | 2019-02-13 23:39 | NUR ---
PT ASSESSMENT DONE AND VSS. MEDS GIVEN AND WELL TOLERATED. FALL PRECAUTIONS IN PLACE. SLEEPING WELL. HOURLY ROUNDING. CALL LIGHT IN REACH. WILL CONTINUE TO MONITOR.
[2019-02-14 06:37] LABS: CALCIUM 7.8 mg/dL (8.5-10.1); CREATININE 1.1 mg/dL (0.7-1.3); POTASSIUM 4.7 mmol/L (3.5-5.1)
[2019-02-14 07:59] VITALS: BP 147/53; BP 148/66
--- NOTE | 2019-02-14 09:15 | NUR ---
cm notified by that pt refusing snf, going to go home with hh and manual wheel chair at [place] on .
--- NOTE | 2019-02-14 12:05 | NUR ---
ASSUMED CARE AT 0700. VSS ON RA. REPORTS SLEPT GOOD LAST NIGHT. INCONT BLADDER THIS AM. ASSISTED WITH CLEANING AND HELPED PT TO EAT IN DINNING ROOM THIS AM. PATIENT IS ALERT AND ORIENTED X2, FORGETFUL, [place], BUT FOLLOW COMMANDS. FAMILY LAW LEGAL ASSISTANT ARE EQUAL. LUNGS ARE CLEAR AND DIMINISHED. SAT 92% ON RA. CONTINUES ON ABT FOR UTI TOLERATING ABT'S WITHOUT ADVERSE REACTION. NEW SORE ON L HEEL. PICTURE TAKEN YESTERDAY AND PUT ON CHART. NEW OPTIFOAM APPLIED AFTER OT SESSION. CALLED AND NOTIFIED DR. THOMAS OBTAINED ORDER FOR WOUND CONSULT. ALSO INFORMED DOCTOR ABOUT CULTURE RESULT LAST WEEK. DOCTOR SAID HE IS OK WITH CEFDINIR. REDNESS ON BUTTOCK. MOISTURE BARRIER TO BOTTOM. ENCOURAGED PT TO WALK TO DINNING ROOM PER MEALS. PATIENT IS INCONTINENT OF URINE. OFFER USING URINAL FREQUENTLY. PT HAD BM THIS AM. FALL AND SAFETY PROTOCOLS IN PLACE. C/O BILATERAL HIP PAIN. RATES PAIN 5-6 CONTINUES ON SCED PAIN MEDS AND SAID HIS PAIN IS MANAGEABLE. CONTINUES TO PROGRESS SLOWLY TOWARDS D/C GOALS. PT IS UP IN W/C TO DINING ROOM FOR MEALS. WILL CONTINUE TO MONITOR.
--- NOTE | 2019-02-14 12:20 | NUR ---
Nutrition: pt continues to eat 75-100% of meals on regular diet. orders meals. Weights have trended 160-166# over admit. No supplements desired. Continue as low nutrition risk.
--- NOTE | 2019-02-14 13:56 | NUR ---
WOUND CONSULT; A HEFT POSTERIOR HEEL WOUND WAS IDENTIFIED. S/S ARE CONSISTANT WITH A PRESSURE ULCER. IT WAS A BLISTER THAT IS NOW UNROOFED. BEEFY RED TISSUE. NO S/S OF INFECTION. RECOMMEDNATION. PRAFOBOOTS ON AT ALL TIMES OTHER THAN WHILE IN THERAPY. PURACOL AG AND COVERED WITH A FOAM DRESSING M/W/F. DISCUSSED WITH STAFF
[2019-02-14 19:05] VITALS: BP 132/74
--- NOTE | 2019-02-15 02:52 | NUR ---
TURNING PATIENT SIDE TO SIDE OVERNIGHT. URINAL OFFERED AND PUT IN PLACE EACH TIME, VOIDED 100 CC YELLOW URINE PER URINAL ONCE AND HAS OTHERWISE BEEN INCONTINENT. HEELS ARE OFF-LOADED WITH PRAFO BOOTS. PATIENT TOLERATING PILLS WHOLE IN APPLESAUCE AND SIPS OF WATER. PAIN LOCALIZES TO RIGHT HIP AND IS NOT TOO BAD TONIGHT (HE CANNOT VERBALLY GIVE ME A NUMBER TO RATE HIS PAIN TONIGHT)
[2019-02-15 07:33] VITALS: BP 159/80
--- NOTE | 2019-02-15 12:41 | NUR ---
team review, recommendation: dc 14th with hh ( pt, ot, nursing and sw), possible home o2, [facility] for wheel chair and possible home o2. and family cont to set up home ramp at home.
--- NOTE | 2019-02-15 15:01 | NUR ---
DISCHARGE PLANNING. ANTICIPATED DISCHARGE TO HOME ONCE MEDICALLY READY. HIGH BACK WHEELCHAIR RECOMMENDED FOR HOME USE. PATIENT REFERRAL FAXED TO [facility], FOR WHEELCHAIR NEEDS. CALL PLACED TO MINE TO NOTIFY OF PATIENTS WC NEEDS. MINE TO FACILITATE. FOLLOWING TO ASSIST.
--- NOTE | 2019-02-15 15:55 | NUR ---
WOUND CARE F/U; THE LEFT HEEL WOUND DRESSING WAS UNDISTURBED. THE WOUND LOOKS CLINICALLY BETTER THAN YESTERDAY. I WILL F/U WITH THIS PATIENT DAILY. DISCUSSED WITH CRIMINAL JUSTICE FACULTY
--- NOTE | 2019-02-15 16:26 | NUR ---
PT AMBULATED TO THE BATHROOM WITH ASSURANCE ASSISTANT, AND LEGS BECAME SHAKEY. REQUESTED THAT WE AMBULATE HIM TO THE DINING ROOM AFTER TOILETING, BUT IT IS THE NM JUDGEMENT THAT THE PT IS TOO FATIGUED AND LEGS ARE TOO SHAKEY TO ATTEMP THIS AT THIS TIME. WE WILL AMBULATE AGAIN LATER AFTER HE HAS A CHANCE TO REST.
--- NOTE | 2019-02-15 19:43 | NUR ---
assumed care of pt at 0715. pt is a&ox3, and vital signs are stable. pt reports some pain in hip, pt has periods of grimicing with activity, participated in scheduled therapies. pain medications provided per orders, and pt reports pain managed. pt turned and repositioned q2h. heel dressing c/d/i. prafo boots in place when in bed, low airloss mattress in place. pt on 2l o2 via nc prn to maintain spo2 >90%. fall precations in place and nursing will continue to monitor.
[2019-02-15 20:15] VITALS: BP 148/68; BP 160/80
--- NOTE | 2019-02-16 02:50 | NUR ---
PT ASSESSMENT DONE AND VSS. MEDS GIVEN AND WELL TOLERATED. FALL PRECAUTIONS IN PLACE. SLEEPING WELL. HOURLY ROUNDING. CALL LIGHT IN REACH. WILL CONTINUE TO MONITOR.
--- NOTE | 2019-02-16 07:52 | NUR ---
Patient participated in group therapy on 02/17/19 with OCCUPATIONAL THERAPY. Refer to documentation by YI ERWIN.
[2019-02-16 08:08] VITALS: BP 150/73
--- NOTE | 2019-02-16 10:35 | NUR ---
ASSUMED CARE AT 0700. VSS ON RA. REPORTS SLEPT GOOD LAST NIGHT.PATIENT IS ALERT AND ORIENTED X2, FORGETFUL, [place], BUT FOLLOW COMMANDS. REASSESSMENT PER CHART. LUNGS ARE CLEAR AND DIMINISHED. SAT 94% ON RA. REDNESS ON BUTTOCK. MOISTURE BARRIER TO BOTTOM. ENCOURAGED PT TO WALK TO DINNING ROOM PER MEALS. DRESSING ON LEFT HEEL LOOSED, NEW DRESSING CHANGE FOR REINFORCEMENT. DRESSING CHANGE BY WOUND NURSE LATER. PATIENT IS INCONTINENT OF URINE. OFFER USING URINAL FREQUENTLY. PT HAD BM THIS AM. FALL AND SAFETY PROTOCOLS IN PLACE. C/O BILATERAL HIP PAIN. RATES PAIN 8 CONTINUES ON SCED PAIN MEDS AND SAID HIS PAIN IS MANAGEABLE. AT BEDSIDE. CONTINUES TO PROGRESS SLOWLY TOWARDS D/C GOALS. OT IS WORKING WITH PT AND GIVING HIM SHOWER NOW. WILL CONTINUE TO MONITOR.
--- NOTE | 2019-02-16 12:15 | NUR ---
bryon tried to visit with pt and x 2 thus far to follow up on if temp ramp been ordered, if picked [facility]" i cant pick that now and don't think going to get a ramp he wont need it and it will be to steep. i will have to talk with you tomorrow i have to feed him lunch and go to [place] to get his medications"/jennifer. re-education that safe for wheel chair to have ramp and hh to go act at home with caroline. bryon sent inform to md and team to cont to encourage on dcp.
--- NOTE | 2019-02-16 15:00 | NUR ---
cm visited with jennifer per her request to speak with cm. re-visited about home health " yes [facility] is fine but not going to get temp ramp, going to call the transportation [employer] people for when he is to weak, i will just pay them to take him and when he is stronger he just has 2 steps and i will pull up into the yard to get him into the van"/. cont to education on safe dcp for pt and family. will cont following as needed for dc needs.
--- NOTE | 2019-02-16 15:29 | NUR ---
Patient participated in community reintegration on 02/16/19 with OCCUPATIONAL THERAPY. Refer to documentation by YI VALERIO.
--- NOTE | 2019-02-16 16:28 | NUR ---
Patient participated in functional skills group on 02/16/19 with OT. Refer to documentation by OT.
[2019-02-16 19:40] VITALS: BP 140/59
--- NOTE | 2019-02-17 03:33 | NUR ---
ASSUMED CARE AT APPROX 1900 EVENING 02/16. PT LYING IN BED AT CHANGE OF SHIFT SLEEPING. PT AWOKE FOR HS MEDS AND TOOK WITH APPLESAUCE AND SMALL AMT WATER TOLERATING WELL. PT INCONTINENT OF URINE AND CHANGED PAD. PT ALSO VOIDED IN URINAL WITH PLACEMENT ASSISTANCE. PT ASSISTED WITH REPOSITIONING AND Q2 TURNS. PT APPEARS TO BE SLEEPING SOUNDLY AT PRESENT. BED ALARM ON AND CALL LIGHT IN REACH. WILL CONTINUE TO MONITOR.
[2019-02-17 10:51] VITALS: BP 124/76
--- NOTE | 2019-02-17 12:48 | NUR ---
phone call daughter lilli wanted to talk in private rt dads right and what tx he wants. forever he wants to make her happy and she always do talk for him and he wants to do everything for her. we are told by [facility] that he will have 10 tx in a row, when going to rest."/ daughter. education, active listening and support during phone call on senior blue book palliative information if wanted after pt dc home with hospice company, still can received tx while on palliative care and extra support from ss. " not sure my naheed do any of that and i want my dad to be happy comfort and do want he wants, if gods will he will. like to speak with the dr"/lilli. cm passed on to MD that daughter had questions rt dx and prognosis. will cont following as needed for dc needs.
--- NOTE | 2019-02-17 13:49 | NUR ---
WOUND CARE FOLLOW UP; THE WOUND SHOWS IMPROVEMENT DAILY. GRANULATION BUDS SEEN. GOOD HEALTHY TISSUE. NO S/S OF INFECTION. RECOMMENDATION; CONTINUE PURACOL AG/BOARDER FOAM DAILY. DISCUSSED WWITH STAFF
--- NOTE | 2019-02-17 16:18 | NUR ---
ASSUMED CARE OF PT AT 0715. PT IS A&OX4 AND VITAL SIGNS ARE STABLE. PT DENIES PAIN AT REST AND REPORTS PAIN 4/10 WITH MOVEMENT AND ACTIVITY. PAIN MANAGED WITH PO MEDICAITONS, PARTICIPATED IN SCHEDULED THERAPIES. LEFT HEEL DRESSING CHANGED BY WOUND NURSE THIS SHIFT. PRAFO BOOTS ON WHEN IN BED, LOW AIRLOSS MATTRESS IN PLACE, AND PT TURNED Q2H. CONTACTED DR. SWANSON PER CM REQUEST TO HAVE PROVIDER CALL DAUGHTER AT NUMBER PROVIDED. FALL PRECAUTIONS IN PLACE AND NURSING WILL CONTINUE TO MONITOR.
[2019-02-17 19:50] VITALS: BP 139/66
--- NOTE | 2019-02-17 22:18 | NUR ---
PT ASSESSMENT DONE AND VSS. MEDS GIVEN AND WELL TOLERATED. FALL PRECAUTIONS IN PLACE. SLEEPING WELL. HOURLY ROUNDING. CALL LIGHT IN PLACE. WILL CONTINUE TO MONITOR.
--- NOTE | 2019-02-18 08:00 | NUR ---
cm notified by rt that pt will requirer home oxygen. cm notified md and will get order for home o2 to have sent to [facility].
[2019-02-18 09:30] VITALS: BP 152/68
--- NOTE | 2019-02-18 10:40 | NUR ---
cm notified by [employer] form building supervisor that pt had question about transportation. cm visited with pt and provided express information and there are no special rates unless express has a weekly jorje or appoints for months jorje with them. ok thanks, i know he needs home oxygen, who going to get medication. i will need to pick it up today so i wont have to leave him to go tomorrow and get his medication. need all his medication."/jennifer. education that will let md know if can get rx today for dc home tomorrow at 1300 per . re-education that bedside nurse will complete dc tomorrow. " oh ok thank you for all you have done"/. will cont following as needed for dc needs.
--- NOTE | 2019-02-18 13:22 | NUR ---
pt would like him to be ready by 1300 02/19/19, daughter and grandson going to make sure we get home ok, would like o2 delivered here before we go home"/. cm passed on information to bedside nurse and md. will cont follwoing as needed for dc needs. bedside nurse to call [facility] [phone] and fax dc orders to [phone]
[2019-02-18 13:28] VITALS: BP 152/68
[2019-02-18 19:24] VITALS: BP 137/63
--- NOTE | 2019-02-19 01:13 | NUR ---
ASSUMED CARE AT APPROX 1900 EVENING 02/18. PT LYING IN BED AT CHANGE OF SHIFT SLEEPING. 02 AT 3L PER N/C. PT AWOKE TO TAKE HS MEDS TOLERATING WELL. PT INCONTINENT OF URINE ASSISTING WITH CHANGING PAD AND TOWEL. PT APPEARS TO BE SLEEPING SOUNDLY WITH HOURLY ROUNDING CHECKS. ASSIST WITH Q2 TURNS, FEET/HEELS IN PRAFO BOOTS BILATERALLY. BED ALARM ON AND CALL LIGHT IN REACH. WILL CONTINUE TO MONITOR.
[2019-02-19 07:10] VITALS: BP 152/68
[2019-02-19 09:06] VITALS: BP 152/68
[2019-02-19] MEDS ORDERED: MAGNESIUM400 MG PO (09:39)
[2019-02-19] MEDS ORDERED: CALTRATE-600 W1 EACH PO (09:39)
[2019-02-19] MEDS ORDERED: VITAMIN C1000 MG PO (09:40)
[2019-02-19] MEDS ORDERED: CENTRUM SILVER1 EAC2 PO (09:40)
[2019-02-19] MEDS ORDERED: COENZYME Q10100 M2 PO (09:41)
--- NOTE | 2019-02-19 14:16 | NUR ---
AT 1300, DISCHARGE INSTRUCTIONS GIVEN TO . MEDS REVIEWED, SCRIPTS SENT TO [facility]. APRIA HERE TO INSERVICE ON O2 ADMINISTRATION, O2 SAT 90% ON RA. NEW N/C TUBING SENT WITH . WHEELCHAIR WAS DELIVERED. DAUGHTER HERE, PATIENT ASSISTED TO W/C WITH MAX ASSIST OF 2 STAFF. PATIENT UNABLE TO FOCUS ON TRANSFER FROM W/C TO [facility]. STAFF HAD TO MAX ASSIST FROM W/C TOFRONT PASSENGER SEAT. PATIENT COULD NOT UNDERSTAND HOW TO GET HIS FEET INTO THE VEHICLE. PATIENT WAS ASSISTED GETTING HIS FEET INTO THE VEHICLE, SEATBELT WAS BUCKLED, AND PATIENT RESPONDED "WHAT AM I SUPPOSED TO DO?' REASSURED PATIENT HE WAS SAFE, AND DID NOT NEED TO DO ANYTHING. UNABLE TO LIFT W/C INTO BACK OF [facility]. ALTERNATIVE OPTIONS FOR SKILLED REHAB DISCUSSED WITH DAUGHTER IF MOM IS UNABLE TO CARE FOR HER DAD.
--- NOTE | 2019-02-21 09:54 | NUR ---
RECEIVED MESSAGE FROM DEEJAY JORDAN CM, THAT PT'S CALLED HER, AND STATED [facility]. [facility]ESE THIS AM, WITH REQUEST THAT VLADIMIR CALL [facility] OFFICE PHONE TO CONFIRM THAT THEY RECEIVED THE DC PACKET.
--- NOTE | 2019-02-21 10:20 | NUR ---
cm received pc x 3 from shawna, left message dionicio needs orders and i think i want him to go to [facility], it is by our house and he needs to be able to get out of bed and start tx (chemo and radiation). i have not been able to get him out of bed since go home on thursday"/ shawna. education that if he goes skilled he might not be about to start his treatment unless the facility could do a carve out with medicare. " oh then don't send referral yet wait till tomorrow, what am i supposed to do. cant leave with snow anyway but then what, he doing fine just in bed"/. education on senior blue that was provied, private duty. " oh does insurance cover that?"/. re-education that private duty is not covered by insurance , and orders have been faxed to [facility] on [facility]. ok i will call you tomorrow"/ jennifer. bryon passed on information to renzo team and
--- NOTE | 2019-02-21 13:05 | NUR ---
PT DISCHARGED TO HOME WITH [facility] OVER THE WEEKEND DC ORDERS WERE NOT FAXED. FAXED DC ORDERS/SUMMARY TO [facility] SPOKE WITH JUAN SHE RECEIVED DC ORDERS AND WILL NOTIFY PT TIME OF VISITS.
--- NOTE | 2019-02-22 10:02 | NUR ---
DANIELLE CALLED AND [facility] SAID CANT ACCEPT HIM ONCE NURSE MADE VISIT AND RAEANN THE SW IS GOING TO CALL TODAY, NEED REFERRAL TO BE SENT TO [facility] IN [facility], AND HE WILL STILL NEED HIS TX FOR CANCER"/. RE-EDUCATION THAT REFERRAL WILL BE SENT OUT AND IT WILL BE UP TO [facility] TO SEE IF CAN CARVE OUT THE CANCER TX, THE SW WITH [facility] CAN ASSIST WITH SKILLED AND IF NOT NEED TO GET PRIVATE DUTY, COULD GET SICKER, WOUNDS FROM BEING IN BED OR EVEN RESP PROBLEMS. " OH I KNOW THIS THANK YOU I WILL BE CALLING YOU AGAIN" / , EDUCATION THAT SW WITH [facility] CAN ASSIST ALSO.
== END 2019-02-19 14:25 | disposition home health service (06) | DRG 181 ==
PROVIDERS: Family Medicine; Nurse Practitioner Family; ADMIT Physical Medicine & Rehabilitation
DX: C34.90 Malignant neoplasm of unspecified part of unspecified bronchus or lung (principal); C79.89 Secondary malignant neoplasm of other specified sites; N39.0 Urinary tract infection, site not specified; C79.31 Secondary malignant neoplasm of brain; C61 Malignant neoplasm of prostate; F01.50 Vascular dementia, unspecified severity, without behavioral disturbance, psychotic disturbance, mood disturbance, and anxiety; Z92.3 Personal history of irradiation
CPT/HCPCS: 10112